=== PATIENT | male | born 1990 | race Caucasian/White ===

== ENCOUNTER 2017-01-06 10:55 | Emergency (ER) | payer MEDICAID ==
[2017-01-06] MEDS ORDERED: ONDANSETRON 4 MG TAB.RAPDIS PO ONE (12:08)
[2017-01-06] MEDS ORDERED: ACETAMINOPHEN 325 MG TABLET PO ONE (12:14)
--- NOTE | 2017-01-06 12:19 | ER Document Report ---
HPI - HPI Patient complains to provider of: body pain, fever, chills Onset: Just prior to arrival Onset/Duration: Sudden Quality of pain: Achy Severity: Severe Pain Level: 5 Associated Symptoms: Fever Exacerbated by: Denies Relieved by: Denies Similar symptoms previously: No Recently seen / treated by doctor: No - REPRODUCTIVE Reproductive: DENIES: : - DERM Skin Color: Normal Past Medical History - General Information source: Patient - Social History Smoking Status: Unknown if Ever Smoked Occupation: [employer] Lives with: Family Family History: Reviewed & Not Pertinent Patient has suicidal ideation: No Patient has homicidal ideation: No - Past Medical History Cardiac Medical History: Denies: Hx Coronary Artery Disease, Hx Heart Attack, Hx Hypertension Pulmonary Medical History: Denies: Hx Asthma, Hx Bronchitis, Hx COPD, Hx Pneumonia Neurological Medical History: Denies: Hx Cerebrovascular Accident, Hx Seizures Renal/ Medical History: Denies: Hx Peritoneal Dialysis Musculoskeltal Medical History: Denies Hx Arthritis, Reports Hx Musculoskeletal Trauma - hx neck and wrist fx Psychiatric Medical History: Reports: Hx Depression Traumatic Medical History: Reports: Hx Fractures - Neck and Wrist, Hx Spine Fracture, Hx Spleen Laceration/Rupture Past Surgical History: Reports: Hx Orthopedic Surgery - ankle, right index finger, Hx Tonsillectomy. Denies: Hx Pacemaker - Immunizations Immunizations up to date: Yes Hx Diphtheria, Pertussis, Tetanus Vaccination: Yes Hx Pneumococcal Vaccination: 08/17/00 Vertical Provider Document - CONSTITUTIONAL Agree With Documented VS: Yes Exam Limitations: No Limitations General Appearance: WD/WN, No Apparent Distress - nontoxic looking - INFECTION CONTROL TRAVEL OUTSIDE OF THE [place] IN LAST 30 DAYS: No - HEENT HEENT: Atraumatic, Normocephalic. negative: Pharyngeal Exudate, Pharyngeal Tenderness, Pharyngeal Erythema, Tympanic Membrane Red, Tympanic Membrane Bulging - NECK Neck: Normal Inspection, Supple. negative: Lymphadenopathy-Left, Lymphadenopathy-Right - RESPIRATORY Respiratory: Breath Sounds Normal, No Respiratory Distress O2 Sat by Pulse Oximetry: 100 - CARDIOVASCULAR Cardiovascular: Regular Rhythm, Tachycardia - GI/ABDOMEN Gastrointestinal: Abdomen Soft, Abdomen Non-Tender - MUSCULOSKELETAL/EXTREMETIES Musculoskeletal/Extremeties: MAEW, FROM, Tender - reports all joints ttp, no swelling or erythema noted - NEURO Level of Consciousness: Awake, Alert, Appropriate Motor/Sensory: No Motor Deficit - DERM Integumentary: Warm, Dry Course - Re-evaluation Re-evalutation: 01/06/17 12:18 Patient instructed on pending labs, UA, tylenol - Vital Signs Vital signs: Temp Pulse Resp BP Pulse Ox 99.7 F 114 H 18 126/82 H 100 01/06/17 11:15 01/06/17 11:15 01/06/17 11:15 01/06/17 11:15 01/06/17 11:15 Discharge - Discharge Clinical Impression: Total body pain, Elevated blood pressure reading Condition: Stable
[2017-01-06 12:39] LABS: APPEARANCE,URINE CLEAR; BILIRUBIN,URINE NEGATIVE (NEGATIVE); GLUCOSE, URINE NEGATIVE (NEGATIVE); KETONES,URINE NEGATIVE (NEGATIVE); LEUKOCYTE ESTERASE,URINE NEGATIVE (NEGATIVE); NITRITE,URINE NEGATIVE (NEGATIVE); PROTEIN,URINE NEGATIVE (NEGATIVE); URINE SPECIFIC GRAVITY 1.013; UROBILINOGEN,URINE NEGATIVE mg/dL (<2.0)
[2017-01-06 13:01] LABS: HEMATOCRIT 40.3 % (37.9-51.0); HEMOGLOBIN 13.3 g/dL (13.5-17.0); HGB HCT DIFFERENCE -0.4; MEAN CORPUSCULAR HEMOGLOBIN 30.2 pg (27.0-33.4); MEAN CORPUSCULAR VOLUME 92 fl (80-97); WHITE BLOOD COUNT 19.2 10^3/uL (4.0-10.5)
[2017-01-06 13:19] LABS: ALANINE AMINOTRANSFERASE 31 U/L (21-72); ALBUMIN 4.1 g/dL (3.5-5.0); ALKALINE PHOSPHATASE 71 U/L (38-126); ANION GAP 12 (5-19); ASPARTATE AMINO TRANSFERASE 25 U/L (17-59); BILIRUBIN,DIRECT 0.2 mg/dL (0.0-0.4); BILIRUBIN,TOTAL 0.6 mg/dL (0.2-1.3); BLOOD UREA NITROGEN 14 mg/dL (7-20); CALCIUM 9.4 mg/dL (8.4-10.2); CARBON DIOXIDE 24 mmol/L (22-30); CHLORIDE 102 mmol/L (98-107); CREATININE RESULT 0.85 mg/dL (0.52-1.25); GLUCOSE 107 mg/dL (75-110); POTASSIUM 3.7 mmol/L (3.6-5.0); SODIUM 137.5 mmol/L (137-145); TOTAL PROTEIN 6.8 g/dL (6.3-8.2)
--- NOTE | 2017-01-06 13:29 | ER Document Report ---
ED Medical Screen (RME) - General Chief Complaint: Pain All Over Stated Complaint: BODY PAINS Time Seen by Provider: 01/06/17 12:07 Mode of Arrival: Ambulatory Information source: Patient Notes: Patient presents emergency department with complaint of his whole body hurting fever chills headache. He reports he went to work this morning at [employer] and [employer] working he felt nauseous and feel generalized body pain. Reports nausea denies vomiting.. Patient has history of splenectomy in 2009. He also reports he has been off his meds Celexa for the past 3 weeks. TRAVEL OUTSIDE OF THE [place] IN LAST 30 DAYS: No - Related Data Allergies/Adverse Reactions: No Known Allergies Allergy (Verified 01/06/17 11:12) Past Medical History - Social History Chew tobacco use (# tins/day): No Frequency of alcohol use: None Drug Abuse: None - Past Medical History Cardiac Medical History: Denies: Hx Coronary Artery Disease, Hx Heart Attack, Hx Hypertension Pulmonary Medical History: Denies: Hx Asthma, Hx Bronchitis, Hx COPD, Hx Pneumonia Neurological Medical History: Denies: Hx Cerebrovascular Accident, Hx Seizures Renal/ Medical History: Denies: Hx Peritoneal Dialysis Musculoskeltal Medical History: Denies Hx Arthritis, Reports Hx Musculoskeletal Trauma - hx neck and wrist fx Psychiatric Medical History: Reports: Hx Depression Traumatic Medical History: Reports: Hx Fractures - Neck and Wrist, Hx Spine Fracture, Hx Spleen Laceration/Rupture Past Surgical History: Reports: Hx Orthopedic Surgery - ankle, right index finger, Hx Tonsillectomy. Denies: Hx Pacemaker - Immunizations Immunizations up to date: Yes Hx Diphtheria, Pertussis, Tetanus Vaccination: Yes Physical Exam - Vital signs Vitals: Temp Pulse Resp BP Pulse Ox 99.7 F 114 H 18 126/82 H 100 01/06/17 11:15 01/06/17 11:15 01/06/17 11:15 01/06/17 11:15 01/06/17 11:15 Course - Vital Signs Vital signs: Temp Pulse Resp BP Pulse Ox 99.7 F 78 18 102/63 97 01/06/17 11:15 01/06/17 16:33 01/06/17 16:33 01/06/17 16:33 01/06/17 16:33 - Laboratory Result Diagrams: 01/06/17 12:40 05/23/17 12:40 Laboratory results interpreted by me: 01/06/17 12:40 WBC 19.2 H Hgb 13.3 L Seg Neuts % (Manual) 92 H Lymphocytes % (Manual) 1 L Abs Neuts (Manual) 18.2 H Abs Lymphs (Manual) 0.4 L Doctor's Discharge - Discharge Clinical Impression: Dehydration Condition: Good Disposition: HOME, SELF-CARE Instructions: Acetaminophen, Dehydration ([facility]), Intravenous (IV) Fluids ([facility]) Forms: Smoking Cessation Education, Return to Work Referrals: [facility] [NO LOCAL MD] - Follow up as needed AHSAN MORA MD [NO LOCAL MD] - Follow up as needed [facility] MCKEON DO [NO LOCAL MD] - Follow up as needed
[2017-01-06 13:31] LABS: BAND NEUTROPHILS % (MANUAL) 3 % (3-5); BASOPHILS % (MANUAL) 0 % (0-2); EOSINOPHILS % (MANUAL) 0 % (0-6); LYMPHOCYTES % (MANUAL) 1 % (13-45); TOTAL CELLS COUNTED 100
[2017-01-06 13:41] LABS: ANISOCYTOSIS SLIGHT; POIKILOCYTOSIS SLIGHT; TOXIC GRANULATION SLIGHT; TOXIC VACUOLATION PRESENT
[2017-01-06 13:42] LABS: BURR CELLS SLIGHT; TARGET CELLS 1+
[2017-01-06] MEDS ORDERED: NORMAL SALINE 1000 ML 1,000 ML IV ONE (13:47)
--- NOTE | 2017-01-06 14:41 | ER Document Report ---
ED General Pain - General Chief Complaint: Pain All Over Stated Complaint: BODY PAINS Time Seen by Provider: 01/06/17 12:07 Mode of Arrival: Ambulatory Notes: Patient is a 26-year-old male presents emergency department complaining of body aches onset earlier this afternoon. 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 States that he has a history of hypoglycemia in the past that he ate a snack and went back up to continue working when he still felt severe body ache and shivering. Denies any fever, difficulty swallowing, dyspnea, URI symptoms, toothache,, nausea, vomiting, diarrhea or constipation. Denies any abdominal pain, urinary symptoms. Patient states that he does work in construction and heavy lifting and working very hard for the past couple of weeks without much time off. Denies any red urine, flank pain. States that he did have dental extraction for 3 teeth 4 weeks ago. Completed his course of penicillin. 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 Patient states that he has not followed up with a primary care provider since that surgery. He states he believes he is up-to-date on all of his vaccines since that procedure. He denies any complications from that surgery over the past 6 years. Otherwise he states his medical history significant for necrotic bacterial strep infection in his right finger when he was 15. Social history significant for for pack years, denies any alcohol use. Social marijuana use. Denies any allergies. TRAVEL OUTSIDE OF THE [place] IN LAST 30 DAYS: No - Related Data Allergies/Adverse Reactions: No Known Allergies Allergy (Verified 01/06/17 11:12) Past Medical History - General Information source: Patient - Social History Smoking Status: Never Smoker Chew tobacco use (# tins/day): No Frequency of alcohol use: None Drug Abuse: None Family History: Reviewed & Not Pertinent Patient has suicidal ideation: No Patient has homicidal ideation: No - Past Medical History Cardiac Medical History: Denies: Hx Coronary Artery Disease, Hx Heart Attack, Hx Hypertension Pulmonary Medical History: Denies: Hx Asthma, Hx Bronchitis, Hx COPD, Hx Pneumonia Neurological Medical History: Denies: Hx Cerebrovascular Accident, Hx Seizures Renal/ Medical History: Denies: Hx Peritoneal Dialysis Musculoskeltal Medical History: Denies Hx Arthritis, Reports Hx Musculoskeletal Trauma - hx neck and wrist fx Psychiatric Medical History: Reports: Hx Depression Traumatic Medical History: Reports: Hx Fractures - Neck and Wrist, Hx Spine Fracture, Hx Spleen Laceration/Rupture Past Surgical History: Reports: Hx Orthopedic Surgery - ankle, right index finger, Hx Tonsillectomy. Denies: Hx Pacemaker - Immunizations Immunizations up to date: Yes Hx Diphtheria, Pertussis, Tetanus Vaccination: Yes Hx Pneumococcal Vaccination: 08/17/00 Review of Systems - Review of Systems Constitutional: See HPI EENT: No symptoms reported Cardiovascular: No symptoms reported Respiratory: No symptoms reported Gastrointestinal: No symptoms reported Genitourinary: No symptoms reported Musculoskeletal: See HPI Skin: No symptoms reported -: Yes All other systems reviewed and negative Physical Exam - Vital signs Vitals: Temp Pulse Resp BP Pulse Ox 99.7 F 114 H 18 126/82 H 100 01/06/17 11:15 01/06/17 11:15 01/06/17 11:15 01/06/17 11:15 01/06/17 11:15 - Notes Notes: PHYSICAL EXAM GENERAL: Alert, interacts well. HEAD: Normocephalic, atraumatic. EYES: Pupils equal, round, and reactive to light. Extraocular movements intact. ENT: Oral mucosa moist, tongue midline. Uvula midline. Airway patent. No evidence of tonsillar enlargement, peritonsillar abscess, retropharyngeal abscess. NECK: Full range of motion. Supple. Trachea midline. LUNGS: Clear to auscultation bilaterally, no wheezes, rales, or rhonchi. No respiratory distress. HEART: Regular rate and rhythm. No murmurs, gallops, or rubs. ABDOMEN: Soft, nondistended, nontender. No guarding, rebound, or rigidity.. Bowel sounds present in all 4 quadrants. EXTREMITIES: Moves all 4 extremities spontaneously. No edema, radial and dorsalis pedis pulses 2/4 bilaterally. No cyanosis. NEUROLOGICAL: Alert and oriented x4. Normal speech. PSYCH: Normal affect, normal mood. SKIN: Warm, dry, normal turgor. No rashes or lesions noted. - HEENT Teeth diagram: 1 - Evidence of tooth extraction that is healing well. No evidence of abscess or fluid collection 2 - Evidence of tooth extraction that is healing well. No evidence of abscess or fluid collection 3 - Evidence of tooth extraction that is healing well. No evidence of abscess or fluid collection Course - Re-evaluation Re-evalutation: 01/06/17 18:32 Patient is a 26-year-old male who is hemodynamically stable, no acute distress and afebrile. Physical exam relatively benign for any source of infection. Rapid strep came back negative, clean, no evidence of acute cardiopulmonary process on chest x-ray. 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 Otherwise will discharge patient home with strict return precautions. Patient expresses understanding. - Vital Signs Vital signs: Temp Pulse Resp BP Pulse Ox 99.7 F 78 18 102/63 97 01/06/17 11:15 01/06/17 16:33 01/06/17 16:33 01/06/17 16:33 01/06/17 16:33 - Laboratory Result Diagrams: 01/06/17 12:40 01/06/17 12:40 Laboratory results interpreted by me: 01/06/17 12:40 WBC 19.2 H Hgb 13.3 L Seg Neuts % (Manual) 92 H Lymphocytes % (Manual) 1 L Abs Neuts (Manual) 18.2 H Abs Lymphs (Manual) 0.4 L - Diagnostic Test Radiology reviewed: Image reviewed, Reports reviewed Discharge - Discharge Clinical Impression: Dehydration Condition: Good Disposition: HOME, SELF-CARE Instructions: Dehydration ([facility]), Intravenous (IV) Fluids ([facility]), Acetaminophen Forms: Smoking Cessation Education, Return to Work Referrals: AHSAN MORA MD [NO LOCAL MD] - Follow up as needed [facility] MCKEON DO [NO LOCAL MD] - Follow up as needed [facility] [NO LOCAL MD] - Follow up as needed
--- NOTE | 2017-01-06 14:54 | RADIOLOGY REPORT (SQ) ---
EXAM DESCRIPTION: CHEST PA/LAT COMPLETED DATE/TIME: 01/06/2017 2:26 pm REASON FOR STUDY: fever COMPARISON: 10/07/2015 TECHNIQUE: Frontal and lateral radiographic views of the chest acquired. NUMBER OF VIEWS: Two view. LIMITATIONS: None. FINDINGS: LUNGS AND PLEURA: No opacities, masses or pneumothorax. No pleural effusion. MEDIASTINUM AND HILAR STRUCTURES: No masses or contour abnormalities. HEART AND VASCULAR STRUCTURES: Heart normal size. No evidence for failure. BONES: No acute findings. HARDWARE: None in the chest. OTHER: No other significant finding. IMPRESSION: NO SIGNIFICANT RADIOGRAPHIC FINDING IN THE CHEST. TECHNICAL DOCUMENTATION: JOB ID: [id number] [employer]- All Rights Reserved
[2017-01-06 16:35] VITALS: BP 102/63
== END 2017-01-06 16:33 | disposition home or self-care (01) ==
LOC: ER 10:55
DX: E86.0 Dehydration (principal); R52 Pain, unspecified; Z98.890 Other specified postprocedural states; Z90.81 Acquired absence of spleen; Z86.19 Personal history of other infectious and parasitic diseases
CPT/HCPCS: 99283; 36415; 87040; 87070; 87880; 82550; 85025; 80053; 81001; 87804; 71020; S0119; J7030

== ENCOUNTER 2017-08-01 03:57 | Emergency (ER) | payer MEDICAID ==
[2017-08-01] MEDS ORDERED: ONDANSETRON 4 MG TAB.RAPDIS PO ONE (06:15)
--- NOTE | 2017-08-01 06:33 | ER Document Report ---
HPI - HPI Patient complains to provider of: vomit black at 0300 Onset: Just prior to arrival Onset/Duration: Sudden Pain Level: 4 Context: 27-year-old male complaining of upper abdominal discomfort and he woke up at 3: 00 and vomited large amount of black material. No fever. No diarrhea. His read on the Internet and was concerned that it was blood that oxidized from sitting in the stomach. She also wants his anus checked because he has some intermittent itching for a year and stool that is spontaneously at the anus later after wiping completely after BM. No etoh. No hx ulcer, gastritis. Does have hx of GERD. Associated Symptoms: Other - see above Exacerbated by: Denies Relieved by: Denies - REPRODUCTIVE Reproductive: DENIES: : - DERM Skin Color: Normal Past Medical History - General Information source: Patient - Social History Smoking Status: Current Every Day Smoker Chew tobacco use (# tins/day): No Frequency of alcohol use: None Drug Abuse: None Lives with: Spouse/Significant other Family History: Reviewed & Not Pertinent Patient has suicidal ideation: No Patient has homicidal ideation: No Renal/ Medical History: Denies: Hx Peritoneal Dialysis Musculoskeltal Medical History: Reports Hx Musculoskeletal Trauma - hx neck and wrist fx Psychiatric Medical History: Reports: Hx Depression Traumatic Medical History: Reports: Hx Fractures - Neck and Wrist, Hx Spine Fracture, Hx Spleen Laceration/Rupture Past Surgical History: Reports: Hx Orthopedic Surgery - ankle, right index finger, Hx Tonsillectomy - Immunizations Immunizations up to date: Yes Hx Diphtheria, Pertussis, Tetanus Vaccination: Yes Hx Pneumococcal Vaccination: 08/17/00 Vertical Provider Document - CONSTITUTIONAL Agree With Documented VS: Yes Exam Limitations: No Limitations General Appearance: No Apparent Distress - INFECTION CONTROL TRAVEL OUTSIDE OF THE [place] IN LAST 30 DAYS: No - HEENT HEENT: Normal ENT Exam - NECK Neck: Supple - RESPIRATORY Respiratory: Breath Sounds Normal, No Respiratory Distress O2 Sat by Pulse Oximetry: 98 - CARDIOVASCULAR Cardiovascular: Regular Rate, Regular Rhythm - GI/ABDOMEN Gastrointestinal: Abdomen Soft, Abdomen Non-Tender, Normal Bowel Sounds. negative: Hepatomegaly - BACK Back: Normal Inspection. negative: CVA Tenderness-Right, CVA Tenderness-Left - MUSCULOSKELETAL/EXTREMETIES Musculoskeletal/Extremeties: HIGINIO SULLIVAN - NEURO Level of Consciousness: Awake, Alert, Appropriate - DERM Integumentary: Warm, Dry, No Rash Course - Re-evaluation Re-evalutation: 08/01/17 06:32 tried to drink gingerale and oleg crackers and he started hiccuping, with some nausea. 08/01/17 06:47 CBC is normal - Vital Signs Vital signs: Temp Pulse Resp BP Pulse Ox 97.7 F 98 16 126/81 H 98 08/01/17 04:03 08/01/17 04:03 08/01/17 04:03 08/01/17 04:03 08/01/17 04:03 - Laboratory Result Diagrams: 08/01/17 06:15 08/01/17 06:15 Discharge - Discharge Clinical Impression: Upper abdominal pain, episode of vomiting, Nausea Condition: Good Disposition: HOME, SELF-CARE Instructions: Antinausea Medication ([facility]), Evaluation of Upper Abdominal Pain ( [facility]) Additional Instructions: plenty of fluids today nausea medication if needed advance diet as tolerated
[2017-08-01 06:35] LABS: ABSOLUTE BASOPHILS # (AUTO) 0.1 10^3/uL (0.0-0.2); ABSOLUTE EOSINOPHILS # (AUTO) 0.2 10^3/uL (0.0-0.6); ABSOLUTE LYMPHOCYTES (AUTO) 1.6 10^3/uL (0.5-4.7); ABSOLUTE MONOCYTES (AUTO) 1.2 10^3/uL (0.1-1.4); ABSOLUTE NEUT (AUTO) 9.3 10^3/uL (1.7-8.2); BASOPHILS % (AUTO) 0.6 % (0-2); EOSINOPHILS % (AUTO) 1.9 % (0-6); HEMATOCRIT 42.6 % (37.9-51.0); HEMOGLOBIN 14.4 g/dL (13.5-17.0); HGB HCT DIFFERENCE 0.6; LYMPHOCYTES % (AUTO) 12.6 % (13-45); MEAN CORPUSCULAR HEMOGLOBIN 31.4 pg (27.0-33.4); MEAN CORPUSCULAR HGB CONC 33.9 g/dL (32.0-36.0); MEAN CORPUSCULAR VOLUME 93 fl (80-97); MONOCYTES % (AUTO) 9.8 % (3-13); SEGMENTED NEUTROPHILS % (AUTO) 75.1 % (42-78); WHITE BLOOD COUNT 12.5 10^3/uL (4.0-10.5)
[2017-08-01 06:48] LABS: ALANINE AMINOTRANSFERASE 30 U/L (21-72); ALBUMIN 4.6 g/dL (3.5-5.0); ALKALINE PHOSPHATASE 78 U/L (38-126); ANION GAP 13 (5-19); ASPARTATE AMINO TRANSFERASE 23 U/L (17-59); BILIRUBIN,DIRECT 0.1 mg/dL (0.0-0.4); BILIRUBIN,TOTAL 0.6 mg/dL (0.2-1.3); BLOOD UREA NITROGEN 12 mg/dL (7-20); CARBON DIOXIDE 26 mmol/L (22-30); CHLORIDE 102 mmol/L (98-107); CREATININE RESULT 0.91 mg/dL (0.52-1.25); GLUCOSE 106 mg/dL (75-110); LIPASE 116.2 U/L (23-300); POTASSIUM 4.3 mmol/L (3.6-5.0); SODIUM 141.1 mmol/L (137-145); TOTAL PROTEIN 7.5 g/dL (6.3-8.2)
[2017-08-01] MEDS ORDERED: ONDANSETRON ODT 4 MG TAB (6 TAB/DSPK) PO PRN (06:51)
[2017-08-01 07:09] VITALS: BP 114/79
== END 2017-08-01 07:09 | disposition home or self-care (01) ==
LOC: ER 03:57
DX: R10.10 Upper abdominal pain, unspecified (principal); R11.2 Nausea with vomiting, unspecified; F17.200 Nicotine dependence, unspecified, uncomplicated
CPT/HCPCS: 99284; 36415; 83690; 85025; 80053; S0119

== ENCOUNTER 2017-08-01 15:19 | Emergency (ER) | payer MEDICAID ==
[2017-08-01] MEDS ORDERED: FAMOTIDINE INJ/PF 20 MG/2 ML SDV IV ONE (16:04)
[2017-08-01] MEDS ORDERED: ONDANSETRON HCL INJ/PF 4 MG/2 ML SDV IV ONE ×2 (16:04→19:42)
--- NOTE | 2017-08-01 16:06 | ER Document Report ---
ED General - General Chief Complaint: Vomiting Stated Complaint: VOMITING BLOOD Time Seen by Provider: 08/01/17 15:43 Mode of Arrival: Ambulatory Information source: Patient Notes: This is a 27-year-old man who presents to the emergency room with persistent nausea and vomiting. Patient is concerned that he is vomiting blood. 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 He presents after repeated vomiting. He is brought in a bag with large black vomitus. He denies any significant abdominal pain at this point. He is a half a pack per day smoker. He states he smokes a few joints a week. He does not drink significant amounts of alcohol or caffeine. TRAVEL OUTSIDE OF THE [place] IN LAST 30 DAYS: No - HPI Onset: Yesterday Onset/Duration: Gradual Quality of pain: No pain Severity: None Pain Level: Denies Associated symptoms: Chills, Nausea, Vomiting. denies: Diarrhea, Fever, Shortness of breath Exacerbated by: Denies Relieved by: Denies Similar symptoms previously: Yes Recently seen / treated by doctor: Yes - Related Data Allergies/Adverse Reactions: No Known Allergies Allergy (Verified 01/06/17 11:12) Past Medical History - General Information source: Patient - Social History Smoking Status: Current Every Day Smoker Cigarette use (# per day): Yes - 1/2 Pack per day Chew tobacco use (# tins/day): No Smoking Education Provided: Yes Frequency of alcohol use: Occasional Drug Abuse: Marijuana - 1-2 joints a week Lives with: Spouse/Significant other Family History: Reviewed & Not Pertinent Patient has suicidal ideation: No Patient has homicidal ideation: No - Past Medical History Cardiac Medical History: Denies: Hx Coronary Artery Disease, Hx Heart Attack, Hx Hypertension Pulmonary Medical History: Denies: Hx Asthma, Hx Bronchitis, Hx COPD, Hx Pneumonia Neurological Medical History: Denies: Hx Cerebrovascular Accident, Hx Seizures Renal/ Medical History: Denies: Hx Peritoneal Dialysis Musculoskeltal Medical History: Denies Hx Arthritis, Reports Hx Musculoskeletal Trauma - hx neck and wrist fx Psychiatric Medical History: Reports: Hx Depression Traumatic Medical History: Reports: Hx Fractures - Neck and Wrist, Hx Spine Fracture, Hx Spleen Laceration/Rupture Infectious Medical History: Reports: Other - [facility] Past Surgical History: Reports: Hx Orthopedic Surgery - ankle, right index finger, Hx Tonsillectomy, Other - Splenectomy. Denies: Hx Pacemaker - Immunizations Immunizations up to date: Yes Hx Diphtheria, Pertussis, Tetanus Vaccination: Yes Hx Pneumococcal Vaccination: 08/17/00 Review of Systems - Review of Systems Constitutional: Chills. denies: Fever EENT: No symptoms reported Cardiovascular: No symptoms reported Respiratory: No symptoms reported Gastrointestinal: See HPI Genitourinary: No symptoms reported Male Genitourinary: No symptoms reported Musculoskeletal: No symptoms reported Skin: No symptoms reported Hematologic/Lymphatic: No symptoms reported Neurological/Psychological: No symptoms reported Physical Exam - Vital signs Vitals: Temp Pulse Resp BP Pulse Ox 97.9 F 103 H 20 139/86 H 94 08/01/17 15:25 08/01/17 15:25 08/01/17 15:25 08/01/17 15:25 08/01/17 15:25 Notes: Physical exam: GENERAL: 27-year-old man, alert and oriented 3, no acute distress. HEAD: Atraumatic, normocephalic. EYES: Pupils equal round and reactive to light, extraocular movements intact, sclera anicteric, conjunctiva are normal. ENT: TMs normal, nares patent, oropharynx clear without exudates. Moist mucous membranes. NECK: Normal range of motion, supple without obvious mass or JVD. LUNGS: Breath sounds clear to auscultation bilaterally and equal. No wheezes rales or rhonchi. HEART: Regular rate and rhythm without murmurs, rubs or gallops. ABDOMEN: Soft, normoactive bowel sounds. No tenderness to palpation. No guarding, no rebound. No masses appreciated. Rectal: No hemorrhoids, stool brown, no masses. Stool sent for study. EXTREMITIES: Normal range of motion, no pitting or edema. No clubbing or cyanosis. NEUROLOGICAL: Cranial nerves II through XII grossly intact. Normal speech, moving all extremities. PSYCH: Normal mood, normal affect. SKIN: Warm, Dry, normal turgor, no rashes or lesions noted. Course - Re-evaluation Re-evalutation: 08/01/17 19:12 Note: The patient brought in a bag of vomit from home. We did do a Gastroccult test on it and it did test positive. His stool was brown and guaiac negative. The patient was treated with antibiotics and IV fluids. He did tolerate some fluid orally. His blood counts were essentially unchanged. He was treated with IV Pepcid. CT of the abdomen shows no obstruction. Repeat abdominal exam shows a soft abdomen which is nontender and he does have bowel sounds. He has not vomited since being in the ER. 08/01/17 19:31 08/01/17 19:47 - Vital Signs Vital signs: Temp Pulse Resp BP Pulse Ox 98.6 F 74 18 118/79 98 08/01/17 20:13 08/01/17 20:13 08/01/17 20:13 08/01/17 20:13 08/01/17 20:13 - Laboratory Result Diagrams: 08/01/17 16:30 08/01/17 16:30 Laboratory results interpreted by me: 08/01/17 08/01/17 16:30 16:30 WBC 12.1 H Absolute Neutrophils 9.1 H Chloride 97 L - Diagnostic Test Radiology reviewed: Image reviewed, Reports reviewed Discharge - Discharge Clinical Impression: Vomiting with nausea, Gastritis Condition: Stable Disposition: HOME, SELF-CARE Additional Instructions: As we discussed the vomit did show that there was some blood in it. The stool sample was normal and did not have any blood in it. I am putting you on a medicine (Prilosec) for gastritis/possible ulcers. I have written for nausea medicine cold Reglan: This may make you tired, so do not take it while operating machinery or working. Use this nausea medicine at home. The Zofran is nonsedating and you can use when at work. I would like you to follow-up with the GI doctor: I left the number for Dr. Brito who is affiliated with the hospital. Call the office on Thursday and tell them you were seen in the emergency room and the ER doctor wanted you seen this week if possible. As far as diet: Start slowly and advance diet slowly. Small amounts of Gatorade or half Gatorade half water for this evening. Soups tomorrow, then the brat diet (bananas, rice, apples And toast). Return to the emergency room for worsening vomiting, not tolerating fluids, pain or any concerns or getting worse. Prescriptions: Metoclopramide HCl [Reglan 10 mg Tablet] 1 - 2 tab PO ASDIR PRN #25 tablet PRN Reason: Omeprazole Magnesium [Prilosec Otc] 20 mg PO DAILY #30 tablet.dr Referrals: JAMIE BRITO MD [ACTIVE STAFF] - Follow up as needed (This is the number of the GI doctor who is affiliated with the hospital.)
[2017-08-01] MEDS: NORMAL SALINE 1000 ML 1,000 ML IV PRN ×2 (16:32→19:10)
[2017-08-01 16:56] LABS: ABSOLUTE BASOPHILS # (AUTO) 0.1 10^3/uL (0.0-0.2); ABSOLUTE EOSINOPHILS # (AUTO) 0.1 10^3/uL (0.0-0.6); ABSOLUTE LYMPHOCYTES (AUTO) 1.9 10^3/uL (0.5-4.7); ABSOLUTE MONOCYTES (AUTO) 0.9 10^3/uL (0.1-1.4); ABSOLUTE NEUT (AUTO) 9.1 10^3/uL (1.7-8.2); BASOPHILS % (AUTO) 0.5 % (0-2); EOSINOPHILS % (AUTO) 0.8 % (0-6); HEMATOCRIT 41.6 % (37.9-51.0); HEMOGLOBIN 14.4 g/dL (13.5-17.0); LYMPHOCYTES % (AUTO) 15.8 % (13-45); MEAN CORPUSCULAR HEMOGLOBIN 31.6 pg (27.0-33.4); MEAN CORPUSCULAR HGB CONC 34.5 g/dL (32.0-36.0); MEAN CORPUSCULAR VOLUME 92 fl (80-97); MONOCYTES % (AUTO) 7.8 % (3-13); PLATELET COUNT 321 10^3/uL (150-450); RED BLOOD COUNT 4.55 10^6/uL (4.35-5.55); RED CELL DISTRIBUTION WIDTH 13.4 % (11.5-14.0); SEGMENTED NEUTROPHILS % (AUTO) 75.1 % (42-78); TOTAL CELLS COUNTED % (AUTO) 100 %; WHITE BLOOD COUNT 12.1 10^3/uL (4.0-10.5)
[2017-08-01 17:20] LABS: ALANINE AMINOTRANSFERASE 31 U/L (21-72); ALBUMIN 4.6 g/dL (3.5-5.0); ALKALINE PHOSPHATASE 67 U/L (38-126); ANION GAP 12 (5-19); ASPARTATE AMINO TRANSFERASE 28 U/L (17-59); BILIRUBIN,DIRECT 0.2 mg/dL (0.0-0.4); BILIRUBIN,TOTAL 0.4 mg/dL (0.2-1.3); BLOOD UREA NITROGEN 16 mg/dL (7-20); CARBON DIOXIDE 30 mmol/L (22-30); CHLORIDE 97 mmol/L (98-107); GLUCOSE 108 mg/dL (75-110); POTASSIUM 4.2 mmol/L (3.6-5.0); SODIUM 139.4 mmol/L (137-145); TOTAL PROTEIN 7.4 g/dL (6.3-8.2)
[2017-08-01] MEDS ORDERED: NORMAL SALINE 1000 ML 1,000 ML IV PRN (17:39)
--- NOTE | 2017-08-01 19:13 | RADIOLOGY REPORT (SQ) ---
EXAM DESCRIPTION: CT ABD/PELVIS WITH IV ONLY COMPLETED DATE/TIME: 08/01/2017 7:01 pm REASON FOR STUDY: abd pain COMPARISON: 02/10/2015 TECHNIQUE: CT scan of the abdomen and pelvis performed using helical scanning technique with dynamic intravenous contrast injection. No oral contrast. Images reviewed with lung, soft tissue, and bone windows. Reconstructed coronal and sagittal MPR images reviewed. Delayed images for evaluation of the urinary system also acquired. All images stored on PACS. All CT scanners at this facility use dose modulation, iterative reconstruction, and/or weight based d osing when appropriate to reduce radiation dose to as low as reasonably achievable (ALARA). [facility]: Dose Right [facility]: CareDose [facility]: Dose Right [facility]: Teradose 4D [facility]: [employer] CONTRAST TYPE AND DOSE: contrast/concentration: Isovue 370.00 mg/ml; Total Contrast Delivered: 79.0 ml; Total Saline Delivered: 68.0 ml RENAL FUNCTION: None required. The patient is less than 50 years old. RADIATION DOSE: CT Rad equipment meets quality standard of care and radiation dose reduction techniq ues were employed. CTDIvol: 5.9 - 8.2 mGy. DLP: 680 mGy-cm.. LIMITATIONS: None. FINDINGS: LOWER CHEST: No significant findings. No nodules or infiltrates. LIVER: Normal size. No masses. No dilated ducts. 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 PANCREAS: No masses. No significant calcifications. No adjacent inflammation or peripancreatic fluid collections. Pancreatic duct not dilated. GALLBLADDER: No identified stones by CT criteria. No inflammatory changes to suggest cholecystitis. ADRENAL GLANDS: No significant masses or asymmetry. RIGHT KIDNEY AND URETER: No solid masses. Incidental note is made of a stable subcentimeter probable cyst. No significant calcifications. No hydronephrosis or hydroureter. LEFT KIDNEY AND URETER: No solid masses. No significant calcifications. No hydronephrosis or hydr oureter. AORTA AND VESSELS: No aneurysm. No dissection. Renal arteries, SMA, celiac without stenosis. RETROPERITONEUM: No retroperitoneal adenopathy, hemorrhage or masses. BOWEL AND PERITONEAL CAVITY: No masses or inflammatory changes. No free fluid or peritoneal masses. APPENDIX: Not visualized. PELVIS: No mass. No free fluid. Normal bladder. ABDOMINAL WALL: No masses. No hernias. BONES: No significant or acute findings. Incidental note is made of sacralization of the L5 vertebra l body. OTHER: No other significant finding. IMPRESSION: NO SIGNIFICANT OR ACUTE FINDING IN THE ABDOMEN OR PELVIS ON CT SCAN WITH IV CONTRAST. TECHNICAL DOCUMENTATION: JOB ID: [id number] Quality ID # [id number]: Final reports with documentation of one or more dose reduction techniques (e.g., Au tomated exposure control, adjustment of the mA and/or kV according to patient size, use of iterative reconstruction technique) 2010 [employer]- All Rights Reserved
[2017-08-01 20:14] VITALS: BP 118/79
== END 2017-08-01 20:13 | disposition home or self-care (01) ==
LOC: ER 15:19
DX: K29.70 Gastritis, unspecified, without bleeding (principal); K92.0 Hematemesis; R68.83 Chills (without fever); F12.10 Cannabis abuse, uncomplicated; F17.210 Nicotine dependence, cigarettes, uncomplicated; Z71.6 Tobacco abuse counseling
CPT/HCPCS: 96376; 99284; 96361; 96374; 96375; 36415; 85025; 82271; 82272; 80053; 74177; J2405; J7030; S0028

== ENCOUNTER 2018-06-30 12:59 | Emergency (ER) | payer SELFPAY ==
[2018-06-30] MEDS ORDERED: LIDOCAINE 5% (700 MG) TRANSDERMAL ADH..PATCH TP ONE (14:18)
[2018-06-30] MEDS ORDERED: KETOROLAC TROMETHAMINE 60 MG/2 ML SDV IM ONE (14:18)
[2018-06-30] MEDS ORDERED: METHOCARBAMOL 750 MG TABLET PO ONE (14:23)
[2018-06-30] MEDS ORDERED: DEXAMETHASONE SOD PHOS INJ 10 MG/1 ML VIAL IM ONE (14:24)
--- NOTE | 2018-06-30 14:39 | ER Document Report ---
HPI - HPI Pain Level: 3 Notes: Patient is an otherwise healthy 27-year-old male who presents with chief complaint of low back pain. He reports the pain has been going on for 3 months. He reports history of previous back injuries in the past. Patient thinks he pulled a muscle. Patient denies any bowel incontinence. Reports he is able to have urination with no difficulty. Patient denies any saddle anesthesia or fever. Patient ambulating's with a steady gait. - REPRODUCTIVE Reproductive: DENIES: : Past Medical History - General Information source: Patient - Social History Smoking Status: Current Some Day Smoker Frequency of alcohol use: None Drug Abuse: None Family History: Reviewed & Not Pertinent - Past Medical History Cardiac Medical History: Denies: Hx Coronary Artery Disease, Hx Heart Attack, Hx Hypertension Pulmonary Medical History: Denies: Hx Asthma, Hx Bronchitis, Hx COPD, Hx Pneumonia Neurological Medical History: Denies: Hx Cerebrovascular Accident, Hx Seizures Renal/ Medical History: Denies: Hx Peritoneal Dialysis Musculoskeletal Medical History: Denies Hx Arthritis, Reports Hx Musculoskeletal Trauma - hx neck and wrist fx Psychiatric Medical History: Reports: Hx Depression Traumatic Medical History: Reports: Hx Fractures - Neck and Wrist, Hx Spine Fracture, Hx Spleen Laceration/Rupture Past Surgical History: Reports: Hx Orthopedic Surgery - ankle, right index finger, Hx Tonsillectomy, Other - Splenectomy. Denies: Hx Pacemaker - Immunizations Immunizations up to date: Yes Hx Diphtheria, Pertussis, Tetanus Vaccination: Yes Hx Pneumococcal Vaccination: 08/17/00 Vertical Provider Document - CONSTITUTIONAL Notes: PHYSICAL EXAMINATION: GENERAL: Well-appearing, well-nourished and in no acute distress. HEAD: Atraumatic, normocephalic. EYES: Pupils equal round extraocular movements intact, conjunctiva are normal. ENT: Nares patent NECK: Normal range of motion LUNGS: No respiratory distress Musculoskeletal: Normal range of motion, tenderness to palpation along paraspinous muscles bilaterally in the lumbar region. Positive straight leg raises at approximately 40 degrees bilaterally. NEUROLOGICAL: Normal speech, normal gait. PSYCH: Normal mood, normal affect. SKIN: Warm, Dry, normal turgor, no rashes or lesions noted. - INFECTION CONTROL TRAVEL OUTSIDE OF THE [place] IN LAST 30 DAYS: No Course - Re-evaluation Re-evalutation: History and physical examination is consistent with musculoskeletal strain. Patient will be treated symptomatically. Patient educated on red flag warning signs to include development of fever, saddle anesthesia, inability to urinate or bowel incontinence. - Vital Signs Vital signs: Temp Pulse Resp BP Pulse Ox 98.1 F 87 16 122/72 99 06/30/18 13:03 06/30/18 13:03 06/30/18 13:03 06/30/18 13:03 06/30/18 13:03 Discharge - Discharge Clinical Impression: Back pain Condition: Stable Disposition: HOME, SELF-CARE Additional Instructions: LOW BACK PAIN: Three out of every four people will have an episode of disabling back pain during their lifetime. Most commonly the pain is due to straining of the muscles and ligaments in the low back. Usual treatment includes: (1) Rest on a firm surface. Avoid lying on your stomach. (2) Ice pack the painful area. After a few days, gentle heat may be used intermittently to relax the area, or ice packs can be continued. (3) Medication may be needed -- muscle relaxers and antiinflammatory medicines are commonly used. (4) As the back improves, exercises are prescribed to strengthen the back and abdominal muscles. Your doctor will advise you on the proper care for your back at each stage in your recovery. You may be better in a few days -- or healing may take several weeks. If new symptoms of a "herniated disc" (radiation of pain, numbness, or tingling down the back of the leg or weakness in the leg) occur, you should be re-examined. Further testing may be necessary. PAIN MEDICATION INJECTION: You have received an injection of a pain medication. You should experience significant pain relief within 45 minutes. If this injection was a narcotic -- it will impair your judgement, slow your reaction time and make you sleepy (as well as relieve your pain). Narcotics also can cause nausea. You should not drive, work with machinery, or perform any task requiring mental alertness until all effects of the medication are gone -- six to eight hours. Do not take any alcohol, or sedatives, and do not take any other medication without checking with your physician. MUSCLE RELAXERS: Muscle relaxing medications are usually prescribed for acute muscle spasm or injury to the neck and back. They are often combined with antiinflammatory pain medication for increased relief. You may stop the muscle relaxer when the pain and stiffness have improved. Start the medication again if spasms recur. Muscle relaxers may cause drowsiness, especially with the first dose. Do not operate machinery or drive while under the effects of the medication. Most muscle relaxers last up to 24 hours. Do not combine the medication with alcohol. ICE PACKS: Apply ice packs frequently against the painful area. Many different schedules are recommended, such as "20 minutes on, 20 minutes off" or "one hour ice, two hours rest." If you need to work, you may need to go longer between ice treatments. You should plan to have the area ice packed AT LEAST one fourth of the time. The ice should be applied over the wrap, tape, or splint, or over a layer of cloth -- not directly against the skin. Some ice bags have a built-in cloth and can be put directly on the skin. WARM PACKS: After approximately two days, apply gentle heat (such as a heating pad or hot water bottle) for about 20 to 30 minutes about every two hours -- at least four times daily. Warmth and elevation will help you make a more rapid recovery , and will ease the pain considerably. Do not use HOT heat, and never apply heat for longer than 30 minutes. The continuous heat can invisibly damage skin and muscles -- even when no burn is seen on the surface. Damaged muscles can make you MORE sore. FOLLOW-UP CARE: If you have been referred to a physician for follow-up care, call the physician s office for an appointment as you were instructed or within the next two days. If you experience worsening or a significant change in your symptoms, notify the physician immediately or return to the Emergency Department at any time for re-evaluation. Please take medication as prescribed. Take ibuprofen 600 mg every 6 hours for pain and inflammation. Ice and alternate with warm packs as outlined above. Follow-up with [place] [facility]. I have enclosed their phone number on this paper. If they are unable to get you when you can also try the [facility]. Prescriptions: Cyclobenzaprine HCl [Flexeril 10 mg Tablet] 10 mg PO TIDP PRN #30 tab PRN Reason: Forms: Return to Work
[2018-06-30 15:13] VITALS: BP 106/71
== END 2018-06-30 15:24 | disposition home or self-care (01) ==
LOC: ER 12:59
DX: M54.5 Low back pain (principal); F17.200 Nicotine dependence, unspecified, uncomplicated; Z87.81 Personal history of (healed) traumatic fracture
CPT/HCPCS: 99283; 96372; J1885; J3490; J1100

== ENCOUNTER 2018-07-06 21:06 | Emergency (ER) | payer SELFPAY ==
[2018-07-06 21:17] VITALS: BP 129/85
--- NOTE | 2018-07-06 22:33 | ER Document Report ---
ED General - General Chief Complaint: Chest Pain Stated Complaint: CHEST PAIN Time Seen by Provider: 07/06/18 22:32 Notes: Patient is a 27-year-old male presents with complaint of chest pain. Pain is right along the right sternal border. It is very reproducible with movement and pain palpation. He denies any difficulty breathing. No fevers. No recent trauma. 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 He does a lot of work with his hands and arms. He has no chronic medical problems. Is otherwise healthy. Denies any other concerns at this time. No recent leg pain or leg swelling. TRAVEL OUTSIDE OF THE [place] IN LAST 30 DAYS: No - Related Data Allergies/Adverse Reactions: No Known Allergies Allergy (Verified 06/30/18 13:00) Past Medical History - Social History Smoking Status: Unknown if Ever Smoked Frequency of alcohol use: None Drug Abuse: None Family History: Reviewed & Not Pertinent - Past Medical History Cardiac Medical History: Denies: Hx Coronary Artery Disease, Hx Heart Attack, Hx Hypertension Pulmonary Medical History: Denies: Hx Asthma, Hx Bronchitis, Hx COPD, Hx Pneumonia Neurological Medical History: Denies: Hx Cerebrovascular Accident, Hx Seizures Renal/ Medical History: Denies: Hx Peritoneal Dialysis Musculoskeletal Medical History: Denies Hx Arthritis, Reports Hx Musculoskeletal Trauma - hx neck and wrist fx Psychiatric Medical History: Reports: Hx Depression Traumatic Medical History: Reports: Hx Fractures - Neck and Wrist, Hx Spine Fracture, Hx Spleen Laceration/Rupture Past Surgical History: Reports: Hx Orthopedic Surgery - ankle, right index finger, Hx Tonsillectomy, Other - Splenectomy. Denies: Hx Pacemaker - Immunizations Immunizations up to date: Yes Hx Diphtheria, Pertussis, Tetanus Vaccination: Yes Hx Pneumococcal Vaccination: 08/17/00 Review of Systems - Review of Systems Notes: My Normal Review Basic REVIEW OF SYSTEMS: CONSTITUTIONAL : Denies fever, chills, or sweats. Denies recent illness. EENT: Denies eye, ear, throat, or mouth pain or symptoms. Denies nasal or sinus congestion. CARDIOVASCULAR: Pain of right side of chest. RESPIRATORY: Denies cough, cold, or chest congestion. Denies shortness of breath, difficulty breathing, or wheezing. GASTROINTESTINAL: Denies abdominal pain. Denies nausea, vomiting, or diarrhea. MUSCULOSKELETAL: Denies neck or back pain or joint pain or swelling. SKIN: Denies rash or skin lesions. NEUROLOGICAL: Denies altered mental status or loss of consciousness. Denies headache. Denies weakness or paralysis or loss of use of either side. Denies problems with gait or speech. Denies sensory or motor loss. ALL OTHER SYSTEMS REVIEWED AND NEGATIVE. Physical Exam - Vital signs Vitals: Temp Pulse Resp BP Pulse Ox 97.8 F 93 18 129/85 H 97 07/06/18 21:10 07/06/18 21:10 07/06/18 21:10 07/06/18 21:10 07/06/18 21:10 - Notes Notes: General Appearance: Well nourished, alert, cooperative, no acute distress, moderate obvious discomfort. Vitals: reviewed, See vital signs table. Head: no swelling or tenderness to the head Eyes: PERRL, EOMI, Conjuctiva clear Chest wall: Patient's chest is extremely tender to palpation over the right costochondral junction. Any pressing over this area causes severe sharp pain the patient says the same pain that he has been experiencing. Left side of chest is nontender. Lungs: No wheezing, No rales, No rhonci, No accessory muscle use, good air exchange bilaterally. Heart: Normal rate, Regular rythm, No murmur, no rub Extremities:good pulses in all extremities, no swelling or tenderness in the extremities, no edema. Skin: warm, dry, appropriate color, no rash Neuro: speech clear, oriented x 3, normal affect, responds appropriately to questions. Course - Re-evaluation Re-evalutation: 07/07/18 04:20 Patient feels safe to be discharged home. I suspect that he has costochondritis based on the location of his pain in the easy reproduction of palpation. His line of work it is very possible that he could develop costochondritis due to the pushing given constant scrubbing and possibly S to do his job. His EKG is normal. Chest x-ray is normal. I do not suspect coronary disease. He has no risk factors for coronary disease. I feel he is safe to be discharged home. I strongly encouraged him return to ER if he has worsening recurrent pain, difficulty breathing, or feels unwell. Patient agrees with plan and will be discharged home. Dictation of this chart was performed using voice recognition software; therefore, there may be some unintended grammatical errors. - Vital Signs Vital signs: Temp Pulse Resp BP Pulse Ox 97.8 F 93 18 129/85 H 97 07/06/18 21:10 07/06/18 21:10 07/06/18 21:10 07/06/18 21:10 07/06/18 21:10 - EKG Interpretation by Me Additional EKG results interpreted by me: 07/06/18 22:32 EKG is reviewed and interpreted by me. EKG shows sinus rhythm with a rate of [address] segment elevation or depression. No ischemic T wave inversions. PA interval, QRS duration, QTc intervals are within normal range. Old EKG for comparison is from January 28, 2015. Discharge - Discharge Clinical Impression: Chest pain Qualifiers: Chest pain type: unspecified Qualified Code(s): R07.9 - Chest pain, unspecified Condition: Good Disposition: HOME, SELF-CARE Additional Instructions: Pelase take the medications as prescribed. please return to the ER immediately if you have worsening pain, fevers, difficulty breathing, or feel unwell. Please follow up with a primary care physician or return to the ER in 3-5 days for reevaluation if you are still having pain. I suspect your pain is related to inflammation of the cartilage in your chest. This will take some time to completely get better, but should not get worse. If it gets worse you should return to the ER. Do not take other NSAID medicaitons such as Aspirin, Motrin, Ibuprofen, Aleve, or Advil when taking Toradol. It is okay to take Tylenol. Prescriptions: Ketorolac Tromethamine [Toradol 10 mg Tablet] 10 mg PO Q8HP PRN #12 tablet PRN Reason: Forms: Return to Work
--- NOTE | 2018-07-06 23:33 | RADIOLOGY REPORT (SQ) ---
EXAM DESCRIPTION: XR CHEST 2 VIEWS COMPLETED DATE/TME: 07/06/2018 23:00 CLINICAL HISTORY: 27 years, Male, chest pain COMPARISON: None. NUMBER OF VIEWS: TECHNIQUE: LIMITATIONS: None. FINDINGS: No evidence of pulmonary infiltrate or pleural effusion. The heart and mediastinum are unremarkable. Pulmonary vascularity appears normal. IMPRESSION: Normal chest x-ray. 2010 [employer]- All Rights Reserved
[2018-07-06] MEDS ORDERED: KETOROLAC TROMETHAMINE INJ/PF 30 MG/1 ML SDV IV ONE (23:45)
--- NOTE | 2018-07-07 08:16 | EKG REPORT ---
SEVERITY:- NORMAL ECG - SINUS RHYTHM : Confirmed by: Carey Matamoros MD 07-Jul-2018 08:15:13
== END 2018-07-07 00:44 | disposition home or self-care (01) ==
LOC: ER 21:06
DX: R07.9 Chest pain, unspecified (principal)
CPT/HCPCS: 93005; 99285; 71046; 93010; J1885

== ENCOUNTER 2018-07-12 19:49 | Emergency (ER) | payer SELFPAY ==
[2018-07-12 21:18] VITALS: BP 120/66
[2018-07-12] MEDS ORDERED: CYCLOBENZAPRINE HCL 10 MG TABLET PO ONE (22:19)
--- NOTE | 2018-07-12 22:19 | ER Document Report ---
ED Neck/Back Problem - General Chief Complaint: Back Pain Stated Complaint: BACK PAIN Time Seen by Provider: 07/12/18 22:18 Mode of Arrival: Ambulatory Information source: Patient Notes: Patient is a 27-year-old male who presents to the ER today for increased chest wall pain with increasing in size mass that started approximately 2 weeks ago without any trauma. Patient states he was seen here for it but that it was not "this bad." Patient states that he feels like he cannot take a deep breath because of the mass and the pain that it is producing. Patient denies any wheezing, history of asthma or COPD or shortness of breath otherwise. Patient also admits to right-sided upper back pain that he has been seen for twice now here in the emergency department without any trauma. TRAVEL OUTSIDE OF THE [place] IN LAST 30 DAYS: No - Related Data Allergies/Adverse Reactions: No Known Allergies Allergy (Verified 06/30/18 13:00) Past Medical History - General Information source: Patient - Social History Smoking Status: Current Every Day Smoker Family History: Reviewed & Not Pertinent - Past Medical History Cardiac Medical History: Denies: Hx Coronary Artery Disease, Hx Heart Attack, Hx Hypertension Pulmonary Medical History: Denies: Hx Asthma, Hx Bronchitis, Hx COPD, Hx Pneumonia Neurological Medical History: Denies: Hx Cerebrovascular Accident, Hx Seizures Renal/ Medical History: Denies: Hx Peritoneal Dialysis Musculoskeletal Medical History: Denies Hx Arthritis, Reports Hx Musculoskeletal Trauma - hx neck and wrist fx Psychiatric Medical History: Reports: Hx Depression Traumatic Medical History: Reports: Hx Fractures - Neck and Wrist, Hx Spine Fracture, Hx Spleen Laceration/Rupture Past Surgical History: Reports: Hx Orthopedic Surgery - ankle, right index finger, Hx Tonsillectomy, Other - Splenectomy. Denies: Hx Pacemaker - Immunizations Immunizations up to date: Yes Hx Diphtheria, Pertussis, Tetanus Vaccination: Yes Hx Pneumococcal Vaccination: 08/17/00 Review of Systems - Review of Systems Constitutional: No symptoms reported EENT: No symptoms reported Cardiovascular: No symptoms reported Respiratory: No symptoms reported Gastrointestinal: No symptoms reported Genitourinary: No symptoms reported Male Genitourinary: No symptoms reported Musculoskeletal: See HPI Skin: See HPI Hematologic/Lymphatic: No symptoms reported Neurological/Psychological: No symptoms reported Physical Exam - Vital signs Vitals: Temp Pulse Resp BP Pulse Ox 97.2 F 99 16 120/66 96 07/12/18 21:17 11/26/18 21:17 07/12/18 21:17 07/12/18 21:17 07/12/18 21:17 - Notes Notes: PHYSICAL EXAMINATION: GENERAL: Well-appearing and in no acute distress. HEAD: Atraumatic, normocephalic. EYES: Pupils equal round and reactive to light, extraocular movements intact, sclera anicteric, conjunctiva are normal. NECK: Normal range of motion, supple without lymphadenopathy LUNGS: CTAB and equal. No wheezes rales or rhonchi. HEART: Regular rate and rhythm without murmurs ABDOMEN: Soft, no tenderness. No guarding, no rebound BACK: Right trapezius tenderness, otherwise no vertebral tenderness, normal ROM EXTREMITIES: Normal range of motion, no pitting edema. No cyanosis. NEUROLOGICAL: Cranial nerves grossly intact. Normal sensory/motor exams. PSYCH: Normal mood, normal affect. SKIN: Warm, Dry, normal turgor, large, 2 cm x 2 cm fleshy colored mass, tender to palpation, no erythema, fluctuance, consistent with lipoma Course - Re-evaluation Re-evalutation: 07/13/18 01:37 Chest x-ray reveals no acute pulmonary cardiovascular pathology, ultrasound of the obvious mass to the anterior right chest wall reveals that it is likely either a hematoma or a complex lipoma. As patient has no trauma to this area I believe that it is more consistent with a complex lipoma today. Patient will be given follow-up with general surgery. - Vital Signs Vital signs: Temp Pulse Resp BP Pulse Ox 97.2 F 99 16 120/66 96 07/12/18 21:17 07/12/18 21:17 07/12/18 21:17 07/12/18 21:17 07/12/18 21:17 Discharge - Discharge Clinical Impression: Lipoma of anterior chest wall Right-sided back pain Qualifiers: Back pain location: thoracic back pain Chronicity: acute Qualified Code(s): M54.6 - Pain in thoracic spine Condition: Stable Disposition: HOME, SELF-CARE Additional Instructions: Return immediately for any new or worsening symptoms. Follow up with general surgeon, call tomorrow to make followup appointment. Prescriptions: Cyclobenzaprine HCl [Flexeril 10 mg Tablet] 10 mg PO TID PRN #20 tablet PRN Reason: Ibuprofen [Motrin 800 mg Tablet] 800 mg PO Q8H PRN #30 tab PRN Reason: Forms: Return to Work Referrals: GABRIELLE DIAMOND MD [[facility]] - Follow up as needed
--- NOTE | 2018-07-12 22:51 | RADIOLOGY REPORT (SQ) ---
EXAM DESCRIPTION: XR CHEST 2 VIEWS COMPLETED DATE/TME: 07/12/2018 22:18 CLINICAL HISTORY: 27 years Male cp, chest mass right anterior obvious COMPARISON: 07/06/2018 FINDINGS: The cardiomediastinal silhouette appears unremarkable. No consolidating infiltrates or pleural effusions. No pneumothorax. IMPRESSION: No acute abnormality is identified.
--- NOTE | 2018-07-13 01:18 | RADIOLOGY REPORT (SQ) ---
EXAM DESCRIPTION: US CHEST COMPLETED DATE/TME: 07/12/2018 22:54 CLINICAL HISTORY: 27 years, Male, right anterior chest wall mass only COMPARISON: Chest x-ray from today's date TECHNIQUE: Transverse and longitudinal sonographic images were obtained in the region of the patient's clinical/palpable abnormality of the anterior right chest wall. LIMITATIONS: None. FINDINGS: A poorly defined mixed echogenicity 2.7 x 0.8 x 1.8 cm area in the superficial soft tissues associated with the clinical/palpable abnormality was noted. This appears to lie superficial to the ribs. Correlate with any prior history of trauma. This could reflect hematoma with degrading blood products. Complex lipoma could have a similar appearance. Close clinical follow-up recommended. IMPRESSION: Poorly defined mixed echogenicity area corresponding to the patient's clinical/palpable abnormality, as above. Exact etiology is indeterminate however close clinical follow-up is recommended. 2011 [employer] [facility] [employer]- All Rights Reserved
--- NOTE | 2018-07-13 07:52 | EKG REPORT ---
SEVERITY:- OTHERWISE NORMAL ECG - SINUS TACHYCARDIA : Confirmed by: Aaron Real MD 13-Jul-2018 07:51:21
== END 2018-07-13 02:14 | disposition home or self-care (01) ==
LOC: ER 19:49
DX: D17.1 Benign lipomatous neoplasm of skin and subcutaneous tissue of trunk (principal); R07.89 Other chest pain; M54.6 Pain in thoracic spine; F17.200 Nicotine dependence, unspecified, uncomplicated
CPT/HCPCS: 71046; 76604; 93005; 93010; 99284

== ENCOUNTER 2018-09-07 14:20 | Emergency (ER) | payer OTHER ==
[2018-09-07] MEDS ORDERED: NORMAL SALINE 1000 ML 1,000 ML IV ONE (14:50)
--- NOTE | 2018-09-07 14:55 | ER Document Report ---
ED Flu Like - General Chief Complaint: Flu Symptoms Stated Complaint: FLU LIKE SYMPTOMS Time Seen by Provider: 09/07/18 14:42 Primary Care Provider: FRANCES COLLINS MD [ACTIVE STAFF] - Follow up as needed Mode of Arrival: Medic Information source: Patient Notes: 28-year-old's male brought to the emergency department by EMS status post syncopal episode. Patient states that for the last day he is been having fever, chills, myalgias, rhinorrhea, nonproductive cough. Patient states that he has had decreased appetite and decreased fluid intake. Patient does have a history of sick contacts with similar symptoms. He states that today he was standing up when began feeling lightheaded, nauseated and woke up lying on the ground. Patient has syncopal episode per EMS. Patient denies any chest pain, shortness of breath, abdominal pain, vomiting, diarrhea, numbness, tingling, weakness, vision changes, speech changes. Patient denies any medical problems. He states he is not on any medications. TRAVEL OUTSIDE OF THE [place] IN LAST 30 DAYS: No - HPI Onset: Yesterday Timing/Duration: Sudden, Persistent Quality of pain: Achy Severity: None Pain Level: Denies Associated symptoms: Body/muscle aches, Chills, Nonproductive cough, Fever, Nausea, Rhinnorhea Similar symptoms previously: Yes Recently seen / treated by doctor: No - Related Data Allergies/Adverse Reactions: No Known Allergies Allergy (Verified 06/30/18 13:00) Past Medical History - General Information source: Patient - Social History Smoking Status: Current Every Day Smoker Family History: Reviewed & Not Pertinent - Past Medical History Cardiac Medical History: Denies: Hx Coronary Artery Disease, Hx Heart Attack, Hx Hypertension Pulmonary Medical History: Denies: Hx Asthma, Hx Bronchitis, Hx COPD, Hx Pneumonia Neurological Medical History: Denies: Hx Cerebrovascular Accident, Hx Seizures Renal/ Medical History: Denies: Hx Peritoneal Dialysis Musculoskeletal Medical History: Denies Hx Arthritis, Reports Hx Musculoskeletal Trauma - hx neck and wrist fx Psychiatric Medical History: Reports: Hx Depression Traumatic Medical History: Reports: Hx Fractures - Neck and Wrist, Hx Spine Fracture, Hx Spleen Laceration/Rupture Past Surgical History: Reports: Hx Orthopedic Surgery - ankle, right index finger, Hx Tonsillectomy, Other - Splenectomy. Denies: Hx Pacemaker - Immunizations Immunizations up to date: Yes Hx Diphtheria, Pertussis, Tetanus Vaccination: Yes Hx Pneumococcal Vaccination: 08/17/00 Review of Systems - Review of Systems Constitutional: Chills, Fever EENT: Nose congestion, Nose discharge Cardiovascular: Syncope, Lightheaded Respiratory: Cough Gastrointestinal: Nausea Genitourinary: No symptoms reported Musculoskeletal: No symptoms reported Skin: No symptoms reported Hematologic/Lymphatic: No symptoms reported Neurological/Psychological: No symptoms reported -: Yes All other systems reviewed and negative Physical Exam - Vital signs Vitals: Temp 98.0 F 09/07/18 14:50 - Notes Notes: PHYSICAL EXAMINATION: GENERAL: Well-appearing, well-nourished and in no acute distress. HEAD: Atraumatic, normocephalic. EYES: Pupils equal round and reactive to light, extraocular movements intact, sclera anicteric, conjunctiva are normal. ENT: Nares patent, oropharynx clear without exudates. Moist mucous membranes. NECK: Normal range of motion, supple without lymphadenopathy LUNGS: Breath sounds clear to auscultation bilaterally and equal. No wheezes rales or rhonchi. HEART: Regular rate and rhythm without murmurs ABDOMEN: Soft, nontender, nondistended abdomen. No guarding, no rebound. No masses appreciated. Musculoskeletal: Normal range of motion, no pitting or edema. No cyanosis. NEUROLOGICAL: Cranial nerves grossly intact. Normal speech, normal gait. Normal sensory, motor exams PSYCH: Normal mood, normal affect. SKIN: Warm, Dry, normal turgor, no rashes or lesions noted. Course - Re-evaluation Re-evalutation: 09/07/18 15:46 EKG: Ventricular rate 70, OK interval 124, QRS duration 80, QTc 393, normal sinus rhythm. No ST segment elevation. 09/07/18 17:02 Labs obtained. No acute process identified. Chest x-ray does not show an acute process. Patient was given a liter of fluids. No signs of orthostatic hy potension. Vital signs are stable. I will discharge the patient home. I instructed the patient to follow-up with his primary care physician this week, to take [id number] medication as needed for symptom relief, and to return to the emergency department for any worsening symptoms. Patient is agreeable with plan of care. 09/07/18 17:02 09/07/18 17:04 - Vital Signs Vital signs: Temp Pulse Resp BP Pulse Ox 98.0 F 68 104/67 09/07/18 14:50 09/07/18 15:17 09/07/18 15:17 - Laboratory Result Diagrams: 09/07/18 15:10 09/07/18 15:10 Laboratory results interpreted by me: 09/07/18 09/07/18 15:10 15:10 WBC 11.7 H RDW 14.9 H Lymphocytes % 11.7 L Monocytes % 14.5 H Absolute Neutrophils 8.5 H Absolute Monocytes 1.7 H Sodium 136.8 L ALT 19 L Discharge - Discharge Clinical Impression: Viral illness Syncopal episodes Qualifiers: Syncope type: unspecified Qualified Code(s): R55 - Syncope and collapse Disposition: HOME, SELF-CARE Instructions: Syncopal Episode ([facility]), Viral Syndrome ([facility]) Referrals: FRANCES COLLINS MD [ACTIVE STAFF] - Follow up as needed
[2018-09-07 15:17] LABS: A TYPE INFLUENZA AG NEGATIVE (NEGATIVE); B INFLUENZA AG NEGATIVE (NEGATIVE)
--- NOTE | 2018-09-07 15:37 | RADIOLOGY REPORT (SQ) ---
EXAM DESCRIPTION: CHEST SINGLE VIEW COMPLETED DATE/TIME: 09/07/2018 3:27 pm REASON FOR STUDY: cough COMPARISON: 07/12/2018 EXAM PARAMETERS: NUMBER OF VIEWS: One view. TECHNIQUE: Single frontal radiographic view of the chest acquired. RADIATION DOSE: NA LIMITATIONS: None. FINDINGS: LUNGS AND PLEURA: No opacities, masses or pneumothorax. No pleural effusion. MEDIASTINUM AND HILAR STRUCTURES: No masses. Contour normal. HEART AND VASCULAR STRUCTURES: Heart normal in size. Normal vasculature. BONES: No acute findings. HARDWARE: None in the chest. OTHER: No other significant finding. IMPRESSION: NO ACUTE RADIOGRAPHIC FINDING IN THE CHEST. TECHNICAL DOCUMENTATION: JOB ID: [id number] [employer] - [employer]- All Rights Reserved Reading location - IP/workstation name: [email or web address]
[2018-09-07 15:40] LABS: ABSOLUTE BASOPHILS # (AUTO) 0.1 10^3/uL (0.0-0.2); ABSOLUTE EOSINOPHILS # (AUTO) 0.1 10^3/uL (0.0-0.6); ABSOLUTE LYMPHOCYTES (AUTO) 1.4 10^3/uL (0.5-4.7); ABSOLUTE MONOCYTES (AUTO) 1.7 10^3/uL (0.1-1.4); ABSOLUTE NEUT (AUTO) 8.5 10^3/uL (1.7-8.2); BASOPHILS % (AUTO) 0.6 % (0-2); HEMATOCRIT 41.8 % (37.9-51.0); HEMOGLOBIN 14.1 g/dL (13.5-17.0); LYMPHOCYTES % (AUTO) 11.7 % (13-45); MEAN CORPUSCULAR HEMOGLOBIN 30.1 pg (27.0-33.4); MEAN CORPUSCULAR HGB CONC 33.7 g/dL (32.0-36.0); MEAN CORPUSCULAR VOLUME 90 fl (80-97); MONOCYTES % (AUTO) 14.5 % (3-13); PLATELET COUNT 308 10^3/uL (150-450); RED BLOOD COUNT 4.67 10^6/uL (4.35-5.55); RED CELL DISTRIBUTION WIDTH 14.9 % (11.5-14.0); SEGMENTED NEUTROPHILS % (AUTO) 72.2 % (42-78); TOTAL CELLS COUNTED % (AUTO) 100 %; WHITE BLOOD COUNT 11.7 10^3/uL (4.0-10.5)
[2018-09-07 16:06] LABS: ALANINE AMINOTRANSFERASE 19 U/L (21-72); ALBUMIN 4.6 g/dL (3.5-5.0); ALKALINE PHOSPHATASE 81 U/L (38-126); ANION GAP 7 (5-19); ASPARTATE AMINO TRANSFERASE 26 U/L (17-59); BILIRUBIN,DIRECT 0.2 mg/dL (0.0-0.4); BILIRUBIN,TOTAL 0.4 mg/dL (0.2-1.3); BLOOD UREA NITROGEN 13 mg/dL (7-20); CALCIUM 9.1 mg/dL (8.4-10.2); CARBON DIOXIDE 28 mmol/L (22-30); CHLORIDE 102 mmol/L (98-107); GLUCOSE 87 mg/dL (75-110); POTASSIUM 4.1 mmol/L (3.6-5.0); SODIUM 136.8 mmol/L (137-145); TOTAL PROTEIN 7.5 g/dL (6.3-8.2)
[2018-09-07 17:29] VITALS: BP 129/75
--- NOTE | 2018-09-07 19:36 | EKG REPORT ---
SEVERITY:- NORMAL ECG - SINUS RHYTHM : Confirmed by: Carey Matamoros MD 07-Sep-2018 19:35:52
== END 2018-09-07 17:29 | disposition home or self-care (01) ==
LOC: ER 14:20
DX: R55 Syncope and collapse (principal); B34.9 Viral infection, unspecified; R50.9 Fever, unspecified; M79.10 Myalgia, unspecified site; J34.89 Other specified disorders of nose and nasal sinuses; R05 Cough; R63.0 Anorexia; R11.0 Nausea; R09.81 Nasal congestion; F17.200 Nicotine dependence, unspecified, uncomplicated
CPT/HCPCS: 93005; 99284; 96360; 36415; 85025; 80053; 87804; 71045; 93010; J7030

== ENCOUNTER 2019-03-16 19:44 | Emergency (ER) | payer SELFPAY ==
[2019-03-16] MEDS ORDERED: DEXAMETHASONE SOD PHOS INJ 10 MG/1 ML VIAL IM ONE (20:41)
--- NOTE | 2019-03-16 20:47 | ER Document Report ---
HPI - HPI Patient complains to provider of: poison jose Time Seen by Provider: 03/16/19 20:41 Pain Level: 4 Context: Healthy 28-year-old male presents the emergency department with concern for poison jose. He works outside and does have environmental exposures and noticed yesterday that he started getting a little bit itchy prior to going to bed. When he woke up this morning he noticed he had a raised vesicular-like rash on his bilateral anterior forearms and a vesicular eruption on his nose. Patient states he had poison jose about 5 months ago but tried "home remedies" and symptoms persisted for weeks so he decided this time to come in to get treated "the right way". No fevers or chills, no weakness, no body or joint aches, no nausea or vomiting. No other complaints. - REPRODUCTIVE Reproductive: DENIES: : Past Medical History - Social History Smoking Status: Unknown if Ever Smoked Family History: Reviewed & Not Pertinent - Past Medical History Cardiac Medical History: Denies: Hx Coronary Artery Disease, Hx Heart Attack, Hx Hypertension Pulmonary Medical History: Denies: Hx Asthma, Hx Bronchitis, Hx COPD, Hx Pneumonia Neurological Medical History: Denies: Hx Cerebrovascular Accident, Hx Seizures Renal/ Medical History: Denies: Hx Peritoneal Dialysis Musculoskeletal Medical History: Denies Hx Arthritis, Reports Hx Musculoskeletal Trauma - hx neck and wrist fx Psychiatric Medical History: Reports: Hx Depression Traumatic Medical History: Reports: Hx Fractures - Neck and Wrist, Hx Spine Fracture, Hx Spleen Laceration/Rupture Past Surgical History: Reports: Hx Orthopedic Surgery - ankle, right index finger, Hx Tonsillectomy, Other - Splenectomy. Denies: Hx Pacemaker - Immunizations Immunizations up to date: Yes Hx Diphtheria, Pertussis, Tetanus Vaccination: Yes Hx Pneumococcal Vaccination: 08/17/00 Vertical Provider Document - CONSTITUTIONAL Notes: PHYSICAL EXAMINATION: Reviewed vital signs and charting by RN GENERAL: Alert, interacts well. No acute distress. HEAD: Normocephalic, atraumatic. EYES: Pupils equal and round. Extraocular movements intact. ENT: Oral mucosa moist, tongue midline. NECK: Full range of motion. Trachea midline. EXTREMITIES: Moves all 4 extremities spontaneously. No edema, No cyanosis. PSYCH: Normal affect, normal mood. SKIN: Warm, dry, normal turgor. Bilateral raised rash with vesicular component on bilateral anterior forearms and a vesicular rash on his nose consistent with poison jose, slightly weeping - INFECTION CONTROL TRAVEL OUTSIDE OF THE [place] IN LAST 30 DAYS: No Course - Re-evaluation Re-evalutation: 03/16/19 20:45 Patient's symptoms consistent with poison jose. I do not suspect this is a varicella type of a rash. Patient is nontoxic-appearing and plan is to place him on a steroid taper. Patient requested an IM dose of steroid here in the emergency department so I gave him dexamethasone 10 mg IM once here and send him home with a prescription for prednisone. Stable for discharge. Return precautions given and care instructions provided. - Vital Signs Vital signs: Temp Pulse Resp BP Pulse Ox 97.8 F 69 20 121/75 98 03/16/19 19:57 03/16/19 19:57 03/16/19 19:57 03/16/19 19:57 03/16/19 19:57 Discharge - Discharge Clinical Impression: Poison jose Condition: Good Disposition: HOME, SELF-CARE Instructions: Use of Diphenhydramine Additional Instructions: Your being seen today for poison oak. Please take the steroid taper as directed. Return for any difficulty breathing, vomiting, passing out, or any other symptoms that are worrisome to you. Steroid taper should be taken as follows: Days 1-7: 60mg PO daily Days 8-14: 40mg PO daily Days 15-21: 20mg PO daily Prescriptions: Prednisone [Deltasone 20 mg Tablet] 20 mg PO DAILY 21 Days #42 tablet
[2019-03-16 21:02] VITALS: BP 131/68
== END 2019-03-16 21:05 | disposition home or self-care (01) ==
LOC: ER 19:44
DX: L23.7 Allergic contact dermatitis due to plants, except food (principal)
CPT/HCPCS: 99282; 96374; J1100

== ENCOUNTER 2019-03-31 01:41 | Emergency (ER) | payer SELFPAY ==
[2019-03-31 01:47] VITALS: BP 112/71
== END 2019-03-31 04:10 | disposition left against medical advice (07) ==
LOC: ER 01:41
DX: Z53.21 Procedure and treatment not carried out due to patient leaving prior to being seen by health care provider (principal)

== ENCOUNTER 2019-07-09 16:29 | Emergency (ER) | payer SELFPAY ==
[2019-07-09 16:38] VITALS: BP 149/103
[2019-07-09] MEDS ORDERED: NORMAL SALINE 1000 ML 1,000 ML IV ONE (16:41)
[2019-07-09] MEDS ORDERED: ONDANSETRON HCL INJ/PF 4 MG/2 ML SDV IV ONE (16:42)
--- NOTE | 2019-07-09 16:45 | ER Document Report ---
ED Medical Screen (RME) - General Chief Complaint: Abdominal Pain Stated Complaint: ABDOMINAL PAIN Time Seen by Provider: 07/09/19 16:40 Mode of Arrival: Ambulatory Information source: Patient Notes: 28-year-old male presents to ED for complaint of severe abdominal pain. He states he had a close to a full bottle of milk in his fridge red last night and the date was getting close so he drank a lot of milk last night. He states his stomach was very upset all day and then started to settle down and he ate a hot dog and the pain is more severe than it was earlier. He states he has been na useated all day but has not vomited. He states the pain is right upper quadrant up epigastric through to his back. He is alert oriented respirations regular nonlabored speaking in full sentences. He states he does drink about monthly smokes cigarettes and also smokes marijuana. 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 He states he also has a history of hypoglycemia. I have greeted and performed a rapid initial assessment of this patient. A comprehensive ED assessment and evaluation of the patient, analysis of test results and completion of medical decision making process will be conducted by an additional ED providers. TRAVEL OUTSIDE OF THE [place] IN LAST 30 DAYS: No - Related Data Allergies/Adverse Reactions: No Known Allergies Allergy (Verified 03/31/19 01:43) Past Medical History - Past Medical History Cardiac Medical History: Denies: Hx Coronary Artery Disease, Hx Heart Attack, Hx Hypertension Pulmonary Medical History: Denies: Hx Asthma, Hx Bronchitis, Hx COPD, Hx Pneumonia Neurological Medical History: Denies: Hx Cerebrovascular Accident, Hx Seizures Renal/ Medical History: Denies: Hx Peritoneal Dialysis Musculoskeltal Medical History: Denies Hx Arthritis, Reports Hx Musculoskeletal Trauma - hx neck and wrist fx Psychiatric Medical History: Reports: Hx Depression Traumatic Medical History: Reports: Hx Fractures - Neck and Wrist, Hx Spine Fracture, Hx Spleen Laceration/Rupture Past Surgical History: Reports: Hx Orthopedic Surgery - ankle, right index finger, Hx Tonsillectomy, Other - Splenectomy. Denies: Hx Pacemaker - Immunizations Immunizations up to date: Yes Hx Diphtheria, Pertussis, Tetanus Vaccination: Yes Physical Exam - Vital signs Vitals: Temp Pulse Resp BP Pulse Ox 98.3 F 78 18 149/103 H 99 07/09/19 16:35 07/09/19 16:35 07/09/19 16:35 07/09/19 16:35 07/09/19 16:35 Course - Vital Signs Vital signs: Temp Pulse Resp BP Pulse Ox 98.3 F 78 18 149/103 H 99 07/09/19 16:35 07/09/19 16:35 07/09/19 16:35 07/09/19 16:35 07/09/19 16:35
--- NOTE | 2019-07-09 16:50 | ER Document Report ---
ED General - General Chief Complaint: Abdominal Pain Stated Complaint: ABDOMINAL PAIN Time Seen by Provider: 07/09/19 16:40 Mode of Arrival: Ambulatory Information source: Patient Notes: This 28-year-old male presents to the emergency department with complaints of severe abdominal pain, epigastric and low bilateral abdominal pain that radiates around to his back.. Reports last night he noticed his note was about to so he drank almost a full bottle of milk. He woke up later that night and was having severe abdominal pain. His roommate gave him an antacid and he fell back to sleep he is not sure if he just felt back to sleep or the antacid worked. Denies history of reflux. He went to work today felt better, he ate a hotdog at around 1500 and started having severe abdominal pain again. Denies vomiting complains of real nausea. Last bowel movement was this a.m. was normal. Denies pain with void. Denies fever. Patient has a history of splenectomy. Patient speaking with hoarse voice but denies sore throat. Patient reports he smokes about 1/8 g of marijuana a week has not smoked it today. TRAVEL OUTSIDE OF THE [place] IN LAST 30 DAYS: No - HPI Onset: This morning Onset/Duration: Sudden, Persistent Severity: Severe Associated symptoms: Nausea Exacerbated by: Denies Relieved by: Denies Similar symptoms previously: No Recently seen / treated by doctor: No - Related Data Allergies/Adverse Reactions: No Known Allergies Allergy (Verified 07/09/19 16:56) Past Medical History - General Information source: Patient - Social History Smoking Status: Current Every Day Smoker Chew tobacco use (# tins/day): No Frequency of alcohol use: Rare Drug Abuse: Marijuana Family History: Reviewed & Not Pertinent Patient has suicidal ideation: No Patient has homicidal ideation: No - Past Medical History Cardiac Medical History: Denies: Hx Coronary Artery Disease, Hx Heart Attack, Hx Hypertension Pulmonary Medical History: Denies: Hx Asthma, Hx Bronchitis, Hx COPD, Hx Pneumonia Neurological Medical History: Denies: Hx Cerebrovascular Accident, Hx Seizures Renal/ Medical History: Denies: Hx Peritoneal Dialysis Musculoskeletal Medical History: Denies Hx Arthritis, Reports Hx Musculoskeletal Trauma - hx neck and wrist fx Psychiatric Medical History: Reports: Hx Depression Traumatic Medical History: Reports: Hx Fractures - Neck and Wrist, Hx Spine Fracture, Hx Spleen Laceration/Rupture Past Surgical History: Reports: Hx Orthopedic Surgery - ankle, right index finger, Hx Tonsillectomy, Other - Splenectomy. Denies: Hx Pacemaker - Immunizations Immunizations up to date: Yes Hx Diphtheria, Pertussis, Tetanus Vaccination: Yes Hx Pneumococcal Vaccination: 08/17/00 Review of Systems - Review of Systems Notes: Review HPI for review of systems., All other systems negative Physical Exam - Vital signs Vitals: Temp Pulse Resp BP Pulse Ox 98.3 F 78 18 149/103 H 99 07/09/19 16:35 07/09/19 16:35 07/09/19 16:35 07/09/19 16:35 07/09/19 16:35 - General General appearance: Alert In distress: None - HEENT Head: Normocephalic, Atraumatic Eyes: Normal Conjunctiva: Normal Extraocular movements intact: Yes Pupils: PERRL Nasal: Normal Mouth/Lips: Normal Mucous membranes: Normal, Moist Pharynx: Normal. No: Erythema, Exudate, Peritonsillar abscess Neck: Normal, Supple. No: Lymphadenopathy - Respiratory Respiratory status: No respiratory distress Chest status: Nontender Breath sounds: Normal Chest palpation: Normal - Cardiovascular Rhythm: Regular Heart sounds: Normal auscultation - Abdominal Inspection: Normal Distension: No distension Bowel sounds: Normal Tenderness: Tender Organomegaly: No organomegaly - Back Back: Normal. No: CVA tenderness - Extremities General upper extremity: Normal ROM General lower extremity: Normal ROM - Neurological Neuro grossly intact: Yes Cognition: Normal Orientation: AAOx4 Adeline Coma Scale Eye Opening: Spontaneous [place] Coma Scale Verbal: Oriented Adeline Coma Scale Motor: Obeys Commands Adeline Coma Scale Total: 15 Speech: Normal - Psychological Associated symptoms: Normal affect, Normal mood - Skin Skin Temperature: Warm Skin Moisture: Dry Skin Color: Normal Course - Re-evaluation Re-evalutation: 07/09/19 18:24 28-year-old male presents with severe epigastric abdominal pain also complaining of lower abdominal pain bilaterally and bilateral back pain. Reports this started after he drank almost a full bottle of milk last night. Seem to get bet ter this morning but returned after he ate a hotdog at 1500. Patient denies history of reflux. Patient does admit to smoking marijuana on a daily basis. We discussed the correlation between abdominal pain and marijuana use. He does not think it is that. Complains of nausea no vomiting. 07/09/19 19:26 CT and ultrasound negative no acute findings. Labs unremarkable. Patient was instructed on all results. Patient became very upset demanded to remove the IV. He reports he wants to go outside and smoke. Patient was instructed on the importance of follow-up with his provider for possible GI referral. He was not happy. Abdomen Ultrasound 07/09/19 16:45 IMPRESSION: NO ACUTE FINDINGS. Abdomen/Pelvis CT 07/09/19 18:18 IMPRESSION: NO ACUTE FINDINGS IN THE ABDOMEN OR PELVIS ON CT SCAN WITH IV CONTRAST. 07/09/19 17:00 07/09/19 17:00 MCV 92 fl (80-97) 07/09/19 17:00 MCH 30.8 pg (27.0-33.4) 07/09/19 17:00 MCHC 33.6 g/dL (32.0-36.0) 07/09/19 17:00 RDW 13.9 % (11.5-14.0) 07/09/19 17:00 Seg Neutrophils % 75.8 % (42-78) 07/09/19 17:00 Chloride 102 mmol/L (98-107) 07/09/19 17:00 Carbon Dioxide 28 mmol/L (22-30) 07/09/19 17:00 Anion Gap 9 (5-19) 07/09/19 17:00 Est GFR ( Amer) > 60 (>60) 07/09/19 17:00 Glucose 83 mg/dL (75-110) 07/09/19 17:00 Calcium 10.1 mg/dL (8.4-10.2) 07/09/19 17:00 Total Bilirubin 0.5 mg/dL (0.2-1.3) 07/09/19 17:00 AST 25 U/L (17-59) 07/09/19 17:00 Alkaline Phosphatase 61 U/L (38-126) 07/09/19 17:00 Total Protein 7.8 g/dL (6.3-8.2) 07/09/19 17:00 Albumin 4.7 g/dL (3.5-5.0) 07/09/19 17:00 Lipase 149.5 U/L (23-300) 07/09/19 17:00 Urine Color YELLOW 07/09/19 17:40 Urine Appearance CLEAR 07/09/19 17:40 Urine pH 6.0 (5.0-9.0) 07/09/19 17:40 Ur Specific Wilbur 1.012 07/09/19 17:40 Urine Protein NEGATIVE mg/dL (NEGATIVE) 07/09/19 17:40 Urine Glucose (UA) NEGATIVE mg/dL (NEGATIVE) 07/09/19 17:40 Urine Ketones NEGATIVE mg/dL (NEGATIVE) 07/09/19 17:40 Urine Blood NEGATIVE (NEGATIVE) 07/09/19 17:40 Urine RBC (Auto) 1 /HPF 07/09/19 17:40 07/09/19 19:27 07/09/19 21:17 - Vital Signs Vital signs: Temp Pulse Resp BP Pulse Ox 98.3 F 78 18 149/103 H 99 07/09/19 16:35 07/09/19 16:35 07/09/19 16:35 07/09/19 16:35 07/09/19 16:35 - Laboratory Result Diagrams: 07/09/19 17:00 07/09/19 17:00 Laboratory results interpreted by me: 07/09/19 17:00 WBC 13.4 H Absolute Neuts (auto) 10.1 H - Diagnostic Test Radiology reviewed: Image reviewed, Reports reviewed Discharge - Discharge Clinical Impression: Abdominal pain Qualifiers: Abdominal location: unspecified location Qualified Code(s): R10.9 - Unspecified abdominal pain Condition: Stable Disposition: HOME, SELF-CARE Instructions: Abdominal Pain ([facility]), Gastroenterology, Intravenous (IV) Fluids ([facility]) Additional Instructions: *You have been evaluated for abdominal pain *All your labs were unremarkable. Your CT and ultrasound were negative for an acute finding *Avoid spicy foods, antacids as indicated *Avoid smoking marijuana *Follow up with a primary care provider within 1 week for referral to gastroenterology as indicated *Return to ED for worsening condition, changes, needs *Return to ED if not better in 24 hours Monitor your blood pressure. Your blood pressure was elevated today. This may be because you were anxious, in pain or because you need medication. It is important to follow up with your primary care provider for full evaluation. Forms: Elevated Blood Pressure
[2019-07-09 17:39] LABS: ABSOLUTE EOSINOPHILS # (AUTO) 0.1 10^3/uL (0.0-0.6); ABSOLUTE LYMPHOCYTES (AUTO) 1.9 10^3/uL (0.5-4.7); ABSOLUTE MONOCYTES (AUTO) 1.2 10^3/uL (0.1-1.4); ABSOLUTE NEUT (AUTO) 10.1 10^3/uL (1.7-8.2); BASOPHILS % (AUTO) 0.3 % (0-2); EOSINOPHILS % (AUTO) 0.4 % (0-6); HEMATOCRIT 42.7 % (37.9-51.0); HEMOGLOBIN 14.3 g/dL (13.5-17.0); LYMPHOCYTES % (AUTO) 14.5 % (13-45); MEAN CORPUSCULAR HEMOGLOBIN 30.8 pg (27.0-33.4); MEAN CORPUSCULAR HGB CONC 33.6 g/dL (32.0-36.0); MEAN CORPUSCULAR VOLUME 92 fl (80-97); PLATELET COUNT 326 10^3/uL (150-450); RED BLOOD COUNT 4.66 10^6/uL (4.35-5.55); RED CELL DISTRIBUTION WIDTH 13.9 % (11.5-14.0); SEGMENTED NEUTROPHILS % (AUTO) 75.8 % (42-78); TOTAL CELLS COUNTED % (AUTO) 100 %; WHITE BLOOD COUNT 13.4 10^3/uL (4.0-10.5)
[2019-07-09 17:47] LABS: ALBUMIN 4.7 g/dL (3.5-5.0); ALKALINE PHOSPHATASE 61 U/L (38-126); ANION GAP 9 (5-19); ASPARTATE AMINO TRANSFERASE 25 U/L (17-59); BILIRUBIN,DIRECT 0.1 mg/dL (0.0-0.4); BILIRUBIN,TOTAL 0.5 mg/dL (0.2-1.3); BLOOD UREA NITROGEN 12 mg/dL (7-20); CALCIUM 10.1 mg/dL (8.4-10.2); CARBON DIOXIDE 28 mmol/L (22-30); CHLORIDE 102 mmol/L (98-107); GLUCOSE 83 mg/dL (75-110); POTASSIUM 4.3 mmol/L (3.6-5.0); TOTAL PROTEIN 7.8 g/dL (6.3-8.2)
--- NOTE | 2019-07-09 17:51 | RADIOLOGY REPORT (SQ) ---
EXAM DESCRIPTION: U/S ABDOMEN LIMITED W/O DOP COMPLETED DATE/TIME: 07/09/2019 5:27 pm REASON FOR STUDY: Upper abdominal pain through to the back nausea COMPARISON: Abdominal CT 08/01/2017 TECHNIQUE: Dynamic and static grayscale images acquired of the abdomen and recorded on PACS. Danitzao adele selected color Doppler and spectral images recorded. LIMITATIONS: None. FINDINGS: PANCREAS: No masses. Visualized pancreatic duct normal caliber. LIVER: No masses. Echotexture normal. LIVER VASCULATURE: Normal directional flow of the main portal vein and hepatic veins. GALLBLADDER: No stones. Normal wall thickness. No pericholecystic fluid. ULTRASOUND-DETECTED DALLAS'S SIGN: Negative. INTRAHEPATIC DUCTS AND COMMON DUCT: CBD and intrahepatic ducts normal caliber. No filling defects. INFERIOR VENA CAVA: Normal flow. AORTA: No aneurysm identified. RIGHT KIDNEY: Normal size. 1.3 cm septated cyst in the upper pole, similar to the prior exam. No solid or suspicious masses. No hydronephrosis. No calcifications. PERITONEAL AND RIGHT PLEURAL SPACE: No ascites or effusions. OTHER: No other significant findings. IMPRESSION: NO ACUTE FINDINGS. TECHNICAL DOCUMENTATION: JOB ID: [id number] [employer]- All Rights Reserved Reading location - IP/workstation name: [email or web address]
[2019-07-09 18:11] LABS: APPEARANCE,URINE CLEAR; BILIRUBIN,URINE NEGATIVE (NEGATIVE); COLOR,URINE YELLOW; GLUCOSE, URINE NEGATIVE (NEGATIVE); KETONES,URINE NEGATIVE (NEGATIVE); PROTEIN,URINE NEGATIVE (NEGATIVE); URINE SPECIFIC GRAVITY 1.012; UROBILINOGEN,URINE NEGATIVE mg/dL (<2.0)
[2019-07-09] MEDS ORDERED: MAG HYDROX/AL HYDROX/SIMETH SUSP 30 ML UDCUP PO ONE (18:19)
[2019-07-09] MEDS ORDERED: METOCLOPRAMIDE HCL ORAL SOLN 10 MG/10 ML UDCUP PO ONE (18:19)
[2019-07-09] MEDS ORDERED: LIDOCAINE 2% VISCOUS SOLN 20 ML UDCUP PO ONE (18:19)
--- NOTE | 2019-07-09 19:11 | RADIOLOGY REPORT (SQ) ---
EXAM DESCRIPTION: CT ABD/PELVIS WITH IV ONLY COMPLETED DATE/TIME: 07/09/2019 6:56 pm REASON FOR STUDY: severe abd pain nausea COMPARISON: 08/01/2017 TECHNIQUE: CT scan of the abdomen and pelvis performed using helical scanning technique with dynamic intravenous contrast injection. No oral contrast. Images reviewed with lung, soft tissue, and bone w indows. Reconstructed coronal and sagittal MPR images reviewed. Delayed images for evaluation of the urinary system also acquired. All images stored on PACS. All CT scanners at this facility use dose modulation, iterative reconstruction, and/or weight based d osing when appropriate to reduce radiation dose to as low as reasonably achievable (ALARA). [facility]: Dose Right [facility]: CareDose [facility]: Dose Right [facility]: Teradose 4D [facility]: Indicee CONTRAST TYPE AND DOSE: contrast/concentration: Isovue 350.00 mg/ml; Total Contrast Delivered: 79.0 ml; Total Saline Delivered: 68.0 ml RENAL FUNCTION: GFR > 60. RADIATION DOSE: CT Rad equipment meets quality standard of care and radiation dose reduction techniq ues were employed. CTDIvol: 5.2 - 6.4 mGy. DLP: 659 mGy-cm.. LIMITATIONS: None. FINDINGS: LOWER CHEST: No significant findings. LIVER: Normal size. No enhancing masses. No dilated ducts. SPLEEN: Normal size. No focal lesions. PANCREAS: No masses identified. No significant calcifications. No adjacent inflammation or peripancre atic fluid collections. Pancreatic duct not dilated. GALLBLADDER: No calcified stones. Decompressed. ADRENAL GLANDS: No significant masses. RIGHT KIDNEY AND URETER: Small cysts identified. No solid masses identified. No calcified stones. No hydronephrosis or hydroureter. LEFT KIDNEY AND URETER: Small cysts identified. No solid masses identified. No calcified stones. No h ydronephrosis or hydroureter. AORTA AND VESSELS: No aneurysm. No dissection. Renal arteries, SMA, celiac without significant stenos is. RETROPERITONEUM: No bulky retroperitoneal adenopathy. BOWEL AND PERITONEAL CAVITY: No obstruction or inflammatory changes. No free fluid. APPENDIX: Not visualized. PELVIS: No mass. No free fluid. Unremarkable bladder. ABDOMINAL WALL: No masses. No hernias. BONES: No acute findings. OTHER: No other significant finding. IMPRESSION: NO ACUTE FINDINGS IN THE ABDOMEN OR PELVIS ON CT SCAN WITH IV CONTRAST. TECHNICAL DOCUMENTATION: JOB ID: [id number] [place]-72 Quality ID # [id number]: Final reports with documentation of one or more dose reduction techniques (e.g., Au tomated exposure control, adjustment of the mA and/or kV according to patient size, use of iterative reconstruction technique) 2010 [employer]- All Rights Reserved Reading location - IP/workstation name: [email or web address]
== END 2019-07-09 19:37 | disposition home or self-care (01) ==
LOC: ER 16:29
DX: R11.0 Nausea (principal); R10.13 Epigastric pain; R10.30 Lower abdominal pain, unspecified
CPT/HCPCS: 36415; 83690; 85025; 80053; 81001; 76705; 74177; J3490; J2405; J7030; 96361; 96374; 99284

== ENCOUNTER 2019-07-11 10:20 | Emergency (ER) | payer SELFPAY ==
[2019-07-11 10:27] VITALS: BP 143/95
[2019-07-11] MEDS ORDERED: ONDANSETRON 4 MG TAB.RAPDIS PO ONE (10:40)
--- NOTE | 2019-07-11 10:40 | ER Document Report ---
ED Medical Screen (RME) - General Chief Complaint: Abdominal Pain Stated Complaint: ABDOMINAL PAIN, LOW BACK PAIN Time Seen by Provider: 07/11/19 10:38 Mode of Arrival: Ambulatory Information source: Patient Notes: 28-year-old male presented to ED for continued abdominal pain and nausea. He states he thought he had to have a bowel movement this morning and went to push neck caused him to throw up this morning. He states that the first time is throwing up. He does have a history of reflux but states this does not feel like he has normal reflux and it is not getting any better. He was seen here on Thursday and labs were all negative. Will repeat the labs . I have greeted and performed a rapid initial assessment of this patient. A comprehensive ED assessment and evaluation of the patient, analysis of test results and completion of medical decision making process will be conducted by an additional ED providers. TRAVEL OUTSIDE OF THE [place] IN LAST 30 DAYS: No - Related Data Allergies/Adverse Reactions: No Known Allergies Allergy (Verified 07/09/19 16:56) Past Medical History - Past Medical History Cardiac Medical History: Denies: Hx Coronary Artery Disease, Hx Heart Attack, Hx Hypertension Pulmonary Medical History: Denies: Hx Asthma, Hx Bronchitis, Hx COPD, Hx Pneumonia Neurological Medical History: Denies: Hx Cerebrovascular Accident, Hx Seizures Renal/ Medical History: Denies: Hx Peritoneal Dialysis Musculoskeltal Medical History: Denies Hx Arthritis, Reports Hx Musculoskeletal Trauma - hx neck and wrist fx Psychiatric Medical History: Reports: Hx Depression Traumatic Medical History: Reports: Hx Fractures - Neck and Wrist, Hx Spine Fracture, Hx Spleen Laceration/Rupture Past Surgical History: Reports: Hx Orthopedic Surgery - ankle, right index finger, Hx Tonsillectomy, Other - Splenectomy. Denies: Hx Pacemaker - Immunizations Immunizations up to date: Yes Hx Diphtheria, Pertussis, Tetanus Vaccination: Yes Physical Exam - Vital signs Vitals: Temp Pulse Resp BP Pulse Ox 97.6 F 97 18 143/95 H 98 07/11/19 10:07/11/19 10:25 07/11/19 10:07/11/19 10:07/11/19 10:25 Course - Vital Signs Vital signs: Temp Pulse Resp BP Pulse Ox 97.6 F 97 18 143/95 H 98 07/11/19 10:25 07/11/19 10:25 07/11/19 10:25 07/11/19 10:25 07/11/19 10:25
[2019-07-11 11:10] LABS: ABSOLUTE LYMPHOCYTES (AUTO) 1.3 10^3/uL (0.5-4.7); ABSOLUTE MONOCYTES (AUTO) 0.8 10^3/uL (0.1-1.4); ABSOLUTE NEUT (AUTO) 8.4 10^3/uL (1.7-8.2); BASOPHILS % (AUTO) 0.2 % (0-2); EOSINOPHILS % (AUTO) 0.2 % (0-6); HEMATOCRIT 42.3 % (37.9-51.0); HEMOGLOBIN 14.2 g/dL (13.5-17.0); LYMPHOCYTES % (AUTO) 12.6 % (13-45); MEAN CORPUSCULAR HEMOGLOBIN 30.6 pg (27.0-33.4); MEAN CORPUSCULAR HGB CONC 33.5 g/dL (32.0-36.0); MEAN CORPUSCULAR VOLUME 92 fl (80-97); MONOCYTES % (AUTO) 7.6 % (3-13); PLATELET COUNT 317 10^3/uL (150-450); RED BLOOD COUNT 4.63 10^6/uL (4.35-5.55); RED CELL DISTRIBUTION WIDTH 14.1 % (11.5-14.0); SEGMENTED NEUTROPHILS % (AUTO) 79.4 % (42-78); TOTAL CELLS COUNTED % (AUTO) 100 %; WHITE BLOOD COUNT 10.6 10^3/uL (4.0-10.5)
[2019-07-11 11:14] LABS: APPEARANCE,URINE CLEAR; BILIRUBIN,URINE NEGATIVE (NEGATIVE); COLOR,URINE YELLOW; GLUCOSE, URINE NEGATIVE (NEGATIVE); KETONES,URINE NEGATIVE (NEGATIVE); PROTEIN,URINE NEGATIVE (NEGATIVE); UROBILINOGEN,URINE NEGATIVE mg/dL (<2.0)
[2019-07-11 11:27] LABS: URINE AMPHETAMINES SCREEN NEGATIVE; URINE BARBITURATES SCREEN NEGATIVE; URINE BENZODIAZEPINES SCREEN NEGATIVE; URINE COCAINE SCREEN NEGATIVE; URINE METHADONE SCREEN NEGATIVE; URINE PHENCYCLIDINE SCREEN NEGATIVE
[2019-07-11 11:28] LABS: ALBUMIN 4.7 g/dL (3.5-5.0); ALKALINE PHOSPHATASE 62 U/L (38-126); ANION GAP 7 (5-19); ASPARTATE AMINO TRANSFERASE 27 U/L (17-59); BILIRUBIN,DIRECT 0.1 mg/dL (0.0-0.4); BILIRUBIN,TOTAL 0.5 mg/dL (0.2-1.3); BLOOD UREA NITROGEN 11 mg/dL (7-20); CALCIUM 10.2 mg/dL (8.4-10.2); CARBON DIOXIDE 33 mmol/L (22-30); CHLORIDE 100 mmol/L (98-107); GLUCOSE 116 mg/dL (75-110); POTASSIUM 4.4 mmol/L (3.6-5.0); TOTAL PROTEIN 7.8 g/dL (6.3-8.2)
[2019-07-11 11:29] LABS: URINE MARIJUANA (THC) SCREEN UNCONFIRMED POSITIVE
--- NOTE | 2019-07-11 14:09 | ER Document Report ---
Doctor's Note Notes: 07/11/19 14:08 1 to room at approximate 1:10 PM to see patient. Patient was not in his room. The nurse states that they did not see the patient leave. No no staff in that area saw the patient leave the hospital or the emergency room. I did a search of the emergency department in the waiting room was unable to locate patient. They state that patient was upset initially when he arrived in the room about some of his belongings that he apparently left in the triage area. Staff states that patient gave him the impression that he might have left to retrieve his belongings. At this time it is been over an hour and patient has not returned. He will be considered eloped. I did review all of patient's laboratories there are no significant changes from the laboratories done 2 days ago.
== END 2019-07-11 13:30 | disposition left against medical advice (07) ==
LOC: ER 10:20
DX: R10.9 Unspecified abdominal pain (principal); R11.0 Nausea; R11.10 Vomiting, unspecified; Z87.19 Personal history of other diseases of the digestive system; Z53.20 Procedure and treatment not carried out because of patient's decision for unspecified reasons
CPT/HCPCS: 99281; 36415; 83690; 85025; 80053; 81001; 80307; S0119

== ENCOUNTER 2019-09-10 13:20 | Emergency (ER) | payer SELFPAY ==
[2019-09-10 13:27] VITALS: BP 144/78
--- NOTE | 2019-09-10 14:27 | ER Document Report ---
HPI - HPI Time Seen by Provider: 09/10/19 14:09 Pain Level: Denies Context: Patient is a 29-year-old male who presents the emergency department with a chief complaint of medication refill. Patient reports that on July 15 he was prescribed Celexa 20 mg daily by [facility]. Patient reports he did go to [facility] as he wanted help with being irritated and was told he had some sort of adjustment disorder. Patient reports after 30 days he did run out of this medication. Patient reports he does have counseling scheduled this upcoming Thursday at [facility] but could not get a medication appointment with [facility] until October 08. Patient reports the Celexa was helping with his symptoms. Patient reports he did have an old dose of Celexa 10 mg that he has been using intermittently since he ran out of his prescription from June. Patient reports his last dose was 2 days ago. Patient denies suicidal or homicidal ideation. Patient reports he wants to get back on this medication regularly before his symptoms increase. - REPRODUCTIVE Reproductive: DENIES: : Past Medical History - General Information source: Patient - Social History Smoking Status: Current Every Day Smoker Lives with: Family Family History: Reviewed & Not Pertinent Patient has suicidal ideation: No Patient has homicidal ideation: No - Past Medical History Cardiac Medical History: Reports: None Denies: Hx Coronary Artery Disease, Hx Heart Attack, Hx Hypertension Pulmonary Medical History: Reports: None Denies: Hx Asthma, Hx Bronchitis, Hx COPD, Hx Pneumonia EENT Medical History: Reports: None Neurological Medical History: Reports: None. Denies: Hx Cerebrovascular Accident, Hx Seizures Endocrine Medical History: Reports: None Renal/ Medical History: Reports: None. Denies: Hx Peritoneal Dialysis Malignancy Medical History: Reports None GI Medical History: Reports: None Musculoskeletal Medical History: Denies Hx Arthritis, Reports Hx Musculoskeletal Trauma - hx neck and wrist fx Skin Medical History: Reports None Psychiatric Medical History: Reports: Hx Depression Traumatic Medical History: Reports: Hx Fractures - Neck and Wrist, Hx Spine Fracture, Hx Spleen Laceration/Rupture Infectious Medical History: Reports: None Past Surgical History: Reports: Hx Orthopedic Surgery - ankle, right index finger, Hx Tonsillectomy, Other - Splenectomy. Denies: Hx Pacemaker - Immunizations Immunizations up to date: Yes Hx Diphtheria, Pertussis, Tetanus Vaccination: Yes Hx Pneumococcal Vaccination: 08/17/00 Vertical Provider Document - CONSTITUTIONAL Agree With Documented VS: Yes Exam Limitations: No Limitations General Appearance: No Apparent Distress - INFECTION CONTROL TRAVEL OUTSIDE OF THE [place] IN LAST 30 DAYS: No - HEENT HEENT: Atraumatic, Normal ENT Exam, Normocephalic, PERRLA - NECK Neck: Normal Inspection - RESPIRATORY Respiratory: Breath Sounds Normal, No Respiratory Distress - CARDIOVASCULAR Cardiovascular: Regular Rate, Regular Rhythm - GI/ABDOMEN Gastrointestinal: Abdomen Soft, Abdomen Non-Tender, Normal Bowel Sounds - MUSCULOSKELETAL/EXTREMETIES Musculoskeletal/Extremeties: FROM - NEURO Level of Consciousness: Awake, Alert, Appropriate - DERM Integumentary: Warm, Dry, No Rash Course - Re-evaluation Re-evalutation: 09/10/19 15:23 Patient is a 29-year-old male who is calm, cooperative and has good eye contact. Patient requesting refill on his Celexa 20 mg daily. Patient reports he does have a counseling appointment with [facility] on Thursday and medication refill appointment on October 12. Patient reports the medication was helping him with his agitation and he wants to get back on it as he has been out for about 2 days. Patient states he is not currently have any suicidal homicidal ideation. - Vital Signs Vital signs: Temp Pulse Resp BP Pulse Ox 98.6 F 99 18 144/78 H 96 09/10/19 13:26 09/10/19 13:26 09/10/19 13:26 09/10/19 13:26 09/10/19 13:26 Discharge - Discharge Clinical Impression: Medication refill Condition: Stable Disposition: HOME, SELF-CARE Additional Instructions: *Today you were seen in the emergency department for medication refill. I am giving you a 30-day dose of Celexa 20 mg. Please take this only as prescribed. Please keep your counseling appointment with [facility] on Thursday and your medication refill appointment on October 08 at [facility]. Please return to the emergency department if you have any suicidal thoughts or ideation. Prescriptions: Citalopram Hydrobromide [Celexa 20 mg Tablet] 20 mg PO DAILY #30 tablet
== END 2019-09-10 14:43 | disposition home or self-care (01) ==
LOC: ER 13:20
DX: Z76.0 Encounter for issue of repeat prescription (principal)
CPT/HCPCS: 99281

== ENCOUNTER 2019-11-27 16:42 | Emergency (ER) | payer SELFPAY ==
[2019-11-27 16:48] VITALS: BP 164/109
[2019-11-27] MEDS ORDERED: PENICILLIN V POTASSIUM 500 MG TABLET PO ONE (17:20)
[2019-11-27] MEDS ORDERED: NAPROXEN 250 MG TABLET PO ONE (17:21)
--- NOTE | 2019-11-27 17:26 | ER Document Report ---
HPI - HPI Time Seen by Provider: 11/27/19 17:20 Notes: CHIEF COMPLAINT: Dental pain HPI: 29-year-old male presenting to the emergency department complaining of dental pain right upper molar and right upper front teeth over the last 3 to 4 days. Patient with history of chronic dental problems states he does not have a dentist. No facial swelling. No fever. Has taken no medications for his symptoms. Patient drove himself to the emergency department today ROS: See HPI - all other systems were reviewed and are otherwise negative Constitutional: no fever Eyes: no drainage ENT: no runny nose, no sore throat, positive dental pain Integumentary: no rash Allergy: no hives MEDICATIONS: I agree with the patient medications as charted by the RN. ALLERGIES: I agree with the allergies as charted by the RN. PAST MEDICAL HISTORY/PAST SURGICAL HISTORY: Reviewed and agree as charted by RN. SOCIAL HISTORY: Reviewed and agree as charted by RN. FAMILY HISTORY: No significant familial comorbid conditions directly related to patient complaint EXAM: Reviewed vital signs as charted by RN. CONSTITUTIONAL: Alert and oriented and responds appropriately to questions. Well-appearing; well-nourished, mild distress secondary to pain HEAD: Normocephalic; atraumatic EYES: PERRL; Conjunctivae clear, sclerae non-icteric ENT: normal nose; no rhinorrhea; moist mucous membranes; pharynx without lesions noted, no uvula edema or deviation, no tonsillar hypertrophy, phonation normal. No trismus. No sublingual swelling. Dentition is extremely poor with multiple areas of significant dental caries. The right upper central incisor and lateral incisor with significant dental caries. The right upper second molar with significant dental caries no gingival edema NECK: Supple without meningismus; non-tender; no cervical lymphadenopathy, no masses CARD: Capillary refill less than 3 seconds RESP: Normal chest excursion without splinting or tachypnea ABD/GI: non-distended BACK: The back appears normal EXT: Normal ROM in all joints; no cyanosis, no effusions, no edema SKIN: Normal color for age and race; warm; dry; good turgor; no acute lesions noted NEURO: Moves all extremities equally; Motor and sensory function intact PSYCH: The patient's mood and manner are appropriate. Grooming and personal hygiene are appropriate. MDM: 29-year-old male with dental pain. Severe dental caries. No definitive abscess but will treat with antibiotics short course of pain medication follow-u p with a dentist - REPRODUCTIVE Reproductive: DENIES: : Past Medical History - Social History Smoking Status: Current Every Day Smoker Family History: Reviewed & Not Pertinent - Past Medical History Cardiac Medical History: Denies: Hx Coronary Artery Disease, Hx Heart Attack, Hx Hypertension Pulmonary Medical History: Denies: Hx Asthma, Hx Bronchitis, Hx COPD, Hx Pneumonia Neurological Medical History: Denies: Hx Cerebrovascular Accident, Hx Seizures Renal/ Medical History: Denies: Hx Peritoneal Dialysis Musculoskeletal Medical History: Denies Hx Arthritis, Reports Hx Musculoskeletal Trauma - hx neck and wrist fx Psychiatric Medical History: Reports: Hx Depression Traumatic Medical History: Reports: Hx Fractures - Neck and Wrist, Hx Spine Fracture, Hx Spleen Laceration/Rupture Past Surgical History: Reports: Hx Orthopedic Surgery - ankle, right index finger, Hx Tonsillectomy, Other - Splenectomy. Denies: Hx Pacemaker - Immunizations Immunizations up to date: Yes Hx Diphtheria, Pertussis, Tetanus Vaccination: Yes Hx Pneumococcal Vaccination: 08/17/00 Vertical Provider Document - INFECTION CONTROL TRAVEL OUTSIDE OF THE [place] IN LAST 30 DAYS: No Course - Vital Signs Vital signs: Temp Pulse Resp BP Pulse Ox 98.6 F 70 18 164/109 H 99 11/27/19 16:47 11/27/19 16:47 11/27/19 16:47 11/27/19 16:47 11/27/19 16:47 Discharge - Discharge Clinical Impression: Pain due to dental caries Condition: Stable Disposition: HOME, SELF-CARE Additional Instructions: 1. Take the medications as prescribed, if you were written antibiotics make sure that you finish them. 2. You need to follow up with a dentist for definitive evaluation and care of your dental problems 3. return to the ED for any facial swelling, fever > 101, difficulty swallowing or opening the mouth. 4. you may want to consider a dental discount plan such as [email or web address].com t o help with costs of dental care as you do not have dental insurance Prescriptions: Naproxen 500 mg PO BID PRN #14 tablet PRN Reason: Penicillin V Potassium [Penicillin Vk 500 mg Tablet] 500 mg PO BID #20 tablet Tramadol HCl [Ultram 50 mg Tablet] 50 mg PO Q6H PRN #12 tab PRN Reason:
== END 2019-11-27 17:47 | disposition home or self-care (01) ==
LOC: ER 16:42
DX: K02.9 Dental caries, unspecified (principal); K08.89 Other specified disorders of teeth and supporting structures; F17.200 Nicotine dependence, unspecified, uncomplicated
CPT/HCPCS: 99282

== ENCOUNTER 2020-08-28 01:18 | Emergency (ER) | payer BC ==
--- NOTE | 2020-08-28 03:20 | RADIOLOGY REPORT (SQ) ---
EXAM DESCRIPTION: XR right ANKLE 3 OR MORE VIEWS, XR right FOOT 3 OR MORE VIEWS COMPLETED DATE/TME: 08/28/2020 02:57 CLINICAL HISTORY: 30 years, Male, bone pain Findings: Postsurgical changes with distal fibula surgical hardware. Distal tibia demonstrates surgical screws. Bony alignment and surgical hardware alignment is anatomic. Nondisplaced fracture of the base of the fifth metatarsal avulsion fracture. Mild associated soft tissue swelling. IMPRESSION: Minimally displaced avulsion fracture of the base of the fifth metatarsal. Postsurgical changes.
[2020-08-28] MEDS ORDERED: HYDROCODONE/ACETAMINOPHEN 5-325 MG (6 TAB/ER DISP) PO PRN (06:04)
--- NOTE | 2020-08-28 06:05 | ER Document Report ---
HPI - HPI Patient complains to provider of: Foot injury Time Seen by Provider: 08/28/20 04:58 Onset: Yesterday Onset/Duration: Sudden Quality of pain: Achy Pain Level: 2 Context: Patient states that he stepped back off of a truck bed and accidentally stepped on a book bag injuring his right foot. Patient complains of right foot tenderness with swelling. Patient denies any other injury. Associated Symptoms: Other - Right foot pain Exacerbated by: Standing, Movement, Walking Relieved by: Denies Similar symptoms previously: No Recently seen / treated by doctor: No - ROS ROS below otherwise negative: Yes Systems Reviewed and Negative: Yes All other systems reviewed and negative - NEURO Neurology: DENIES: Weakness - GASTROINTESTINAL Gastrointestinal: DENIES: Nausea - REPRODUCTIVE Reproductive: DENIES: : - MUSCULOSKELETAL Musculoskeletal: REPORTS: Extremity pain - right foot, Swelling - DERM Skin Color: Ecchymosis Skin Problems: None Past Medical History - General Information source: Patient - Social History Smoking Status: Current Every Day Smoker Frequency of alcohol use: None Drug Abuse: None Occupation: [employer] Lives with: Family Family History: Reviewed & Not Pertinent Neurological Medical History: Denies: Hx Cerebrovascular Accident, Hx Seizures Renal/ Medical History: Denies: Hx Peritoneal Dialysis Musculoskeletal Medical History: Denies Hx Arthritis, Reports Hx Musculoskeletal Trauma - hx neck and wrist fx Psychiatric Medical History: Reports: Hx Depression Traumatic Medical History: Reports: Hx Fractures - Neck and Wrist, Hx Spine Fracture, Hx Spleen Laceration/Rupture Past Surgical History: Reports: Hx Orthopedic Surgery - ankle, right index finger, Hx Tonsillectomy, Other - Splenectomy - Immunizations Immunizations up to date: Yes Hx Diphtheria, Pertussis, Tetanus Vaccination: Yes Hx Pneumococcal Vaccination: 08/17/00 Vertical Provider Document - CONSTITUTIONAL Agree With Documented VS: Yes Exam Limitations: No Limitations General Appearance: WD/WN, No Apparent Distress - INFECTION CONTROL TRAVEL OUTSIDE OF THE [place] IN LAST 30 DAYS: No - HEENT HEENT: Atraumatic, Normocephalic - NECK Neck: Normal Inspection, Supple - RESPIRATORY Respiratory: Breath Sounds Normal, No Respiratory Distress - CARDIOVASCULAR Cardiovascular: Regular Rate, Regular Rhythm Pulses: Normal: Dorsalis pedis - MUSCULOSKELETAL/EXTREMETIES Musculoskeletal/Extremeties: MAEW, Tender - Tenderness to the fifth metatarsal the right foot with 3+ edema with faint ecchymosis, Edema, Eccymosis - NEURO Level of Consciousness: Awake, Alert, Appropriate Motor/Sensory: No Motor Deficit, No Sensory Deficit - DERM Integumentary: Warm, Dry Course - Vital Signs Vital signs: Temp Pulse Resp BP Pulse Ox 97.4 F 82 17 129/86 H 96 08/28/20 01:33 08/28/20 01:33 08/28/20 01:33 08/28/20 01:33 08/28/20 01:33 - Laboratory Results Critical Laboratory Results Reviewed: No Critical Results - Radiology Results Critical Radiology Results Reviewed: No Critical Results Procedures - Immobilization Right Foot Pre-Proc Neuro Vasc Exam: Normal Immobilizer type: Posterior ankle Performed by: PCT Post-Proc Neuro Vasc Exam: Normal Alignment checked and good: Yes Discharge - Discharge Clinical Impression: Fracture of 5th metatarsal Qualifiers: Encounter type: initial encounter Fracture type: closed Fracture alignment: displaced Laterality: right Qualified Code(s): S92.351A - Displaced fracture of fifth metatarsal bone, right foot, initial encounter for closed fracture Condition: Stable Disposition: HOME, SELF-CARE Instructions: Use of Crutches ([facility]), Foot Fracture ([facility]), Ice & Elevation ([facility]), Oral Narcotic Medication ([facility]), Splint Precautions ([facility]) Additional Instructions: Return immediately for any new or worsening symptoms Followup with your primary care provider, call tomorrow to make a followup appointment Follow-up with your orthopedic surgeon for recheck, call tomorrow for an appointment Prescriptions: Naproxen [Naprosyn 250 Nmg Tablet] 1 tab PO BID #14 tablet Forms: Return to Work Referrals: [facility] ([facility]) [Provider Group] - Follow up tomorrow
[2020-08-28 06:35] VITALS: BP 114/66
== END 2020-08-28 06:41 | disposition home or self-care (01) ==
LOC: ER 01:18
DX: S92.351A Displaced fracture of fifth metatarsal bone, right foot, initial encounter for closed fracture (principal); F17.200 Nicotine dependence, unspecified, uncomplicated; X50.0XXA Overexertion from strenuous movement or load, initial encounter
CPT/HCPCS: 99283